=== PATIENT | male | born 1960 | race Caucasian/White ===

== ENCOUNTER 2023-03-29 12:50 | Outpatient (OUT) | payer MEDICAID, SELFPAY ==
--- NOTE | 2023-03-29 13:10 | CT_ITS ---
[address] [address] Patient Name: KAMERON GARCIA MRN: [id number] date: 1960 Sex: M Assigned Patient Location: CT Current Patient Location: CT Accession/Order Number: [id number] Exam Date: 03/29/2023 13:05 Report Date: 03/29/2023 15:51 At the request of: ARMANDO BOLES Procedure: CT abdomen pelvis wo con EXAMINATION: CT abdomen pelvis wo con HISTORY: Acute flank pain R10.9 ; left flank pain, hematuria COMPARISON: No relevant comparison available. TECHNIQUE: Axial, Coronal, and Sagittal images were obtained without and/or with IV contrast as indicated by examination type. Dose reduction techniques were achieved by using automated exposure control and/or adjustment of mA and/or kV according to patient size and/or use of iterative reconstruction technique. FINDINGS: LUNG BASES: No visible pulmonary or pleural disease. LIVER: No enlargement, atrophy, suspicious density, or significant focal lesion. BILIARY: No dilatation or calcification. PANCREAS: No lesion, fluid collection, or abnormal duct dilatation. SPLEEN: No enlargement or focal lesion. ADRENALS: No mass or enlargement. KIDNEYS: Numerous small nonobstructing stones within kidneys bilaterally. Mild left periureteral stranding secondary to a 3 mm nonobstructing stone within the distal ureter. BOWEL/MESENTERY: No visible mass, obstruction, or bowel wall thickening. AORTA/VASCULAR: No aneurysm or dissection. RETROPERITONEUM: No mass or adenopathy. LYMPH NODES: No adenopathy. URINARY BLADDER: No visible focal wall thickening, lesion, or calculus. PELVIC ORGANS: No visible mass. Pelvic organs appropriate for patient age. ABDOMINAL WALL: No mass or hernia. BONES: Marked degenerative disc disease of lumbar spine. No fracture or bone lesion. OTHER: Negative. CT/CT abdomen pelvis wo con IMPRESSION: 1.Nonobstructing 3 mm stone within distal left ureter likely contributing to patient's symptoms. 2. Bilateral nonobstructing nephrolithiasis. 3.Lumbar spine and marked degenerative disc disease. Electronically authenticated by: MATTHIEU ELIZONDO Date: 03/29/2023 15:51
== END 2023-03-29 12:51 | disposition home or self-care (01) ==
LOC: CT 12:52
PROVIDERS: PCP Internal Medicine; Visit Provider Internal Medicine
DX: R10.9 Unspecified abdominal pain (principal)
CPT/HCPCS: 74176

== ENCOUNTER 2023-07-09 13:08 | Emergency (ER) | payer MEDICAID, SELFPAY ==
[2023-07-09] VITALS (20 sets, daily range): BP systolic 132–165; BP diastolic 83–103; PULSE 60–74; RESP 15–28; TEMP 36.4; O2SAT 91–98; BMI 28.0
--- NOTE | 2023-07-09 13:30 | ED.CHESTPAI1 ---
HPI - Chest Pain General Chief Complaint: Chest Pain Stated Complaint: CHEST DISCOMFERT Time Seen by Provider: 07/09/23 13:20 Source: patient Mode of arrival: walk-in Limitations: no limitations History of Present Illness HPI narrative: very pleasant gentleman today here wanting to get checked out boasts because of discomfort in his retrosternal area. He says he does have some esophageal reflux and for last week or two he's been having a little bit discomfort sometimes when he bends over. This discomfort does not radiate to his neck and jaw or arms. There is no heaviness pressure or squeezing sensation. It comes and goes throughout the day. It is not related to exertion. He just recently completed a calcium CT store and doesn't know the results. He thinks it was either 117, or 170. This was done at another facility. He does have risk factors his type 2 diabetes, hypertension, he was also recently started on a statin, he takes aspirin baby aspirin every day. He has never seen a engraver lettering. He does not have any nausea vomiting or diaphoresis. No shortness of breath. He says sometimes bending over reproduces his pain. Related Data Allergies Allergy/AdvReac Type Severity Reaction Status Date / Time No Known Drug Allergies Allergy Verified 07/09/23 13:21 [facility] Social History Smoking status: Never smoker Exam Narrative Exam Narrative: awake and alert pleasant stat EKG done on arrival shows sinus rhythm with no evidence of ischemia injury or infarct. No ST segment elevation. His skin is warm and dry speaks memories are moist and pink he's not particularly anxious or apprehensive. Neck examination shows no jugular venous distention no thyromegaly and there is no carotid bruits on auscultation. Respiratory his lungs are clear bilaterally with no wheezes rales rub or wwheezing. Cardio examination shows no S3-S4 clicks rubs or murmurs. He does not have any abdominal pain or epigastric discomfort. Extremities show no evidence of swelling or edema. Constitutional Vital Signs, click to edit/add: Last Vital Signs Temp 97.6 F 07/09/23 13:14 Pulse 60 07/09/23 15:20 Resp 17 07/09/23 15:20 BP 136/83 07/09/23 15:00 Pulse Ox 95 07/09/23 15:20 O2 Del Method Room Air 07/09/23 13:14 Course Vital Signs Vital signs: Vital Signs Temperature 97.6 F 07/09/23 13:14 Pulse Rate 71 07/09/23 13:14 Respiratory Rate 18 07/09/23 13:14 Blood Pressure 165/95 H 07/09/23 13:14 Pulse Oximetry 98 07/09/23 13:14 Oxygen Delivery Method Room Air 07/09/23 13:14 Temperature 97.6 F 07/09/23 13:14 Pulse Rate 60 07/09/23 15:20 Respiratory Rate 17 07/09/23 15:20 Blood Pressure 136/83 07/09/23 15:00 Pulse Oximetry 95 07/09/23 15:20 Oxygen Delivery Method Room Air 07/09/23 13:14 MDM - Chest Pain MDM Narrative Medical decision making narrative: this patient presents with chest discomfort. He does have risk factors as noted below. His cardiac risk or is low to moderate. His resting EKG is sinus rhythm. To take high sensitivity troponins were done and both are very very low. His calcium score is on the low index side by his history. It certainly well less than four hundred. His exams normal. I do not believe he has cardiovascular instability or problem at this time. I will I can follow-up with Dr. Michele. He is to continue the statin and aspirin and other meds for diabetes and hypertension. Lab Data Labs: Lab Results 07/09/23 07/09/23 Range/Units 13:30 15:28 WBC 8.2 (4.0-11.0) 10^3/uL RBC 5.01 (4.70-6.10) 10^6/uL Hgb 14.6 (14.0-18.0) g/dL Hct 43.6 (42.0-54.0) % MCV 87.0 (80.0-94.0) fL MCH 29.1 (25.9-34.0) pg MCHC 33.5 (29.9-35.2) g/dL RDW 13.1 (11.0-15.0) % Plt Count 225 (150-450) 10^3/uL MPV 9.0 L (9.5-13.5) fL Neut % (Auto) 68.4 (43.0-75.0) % Lymph % (Auto) 20.2 L (20.5-60.0) % [place] % (Auto) 8.2 (1.7-12.0) % Eos % (Auto) 2.2 (0.9-7.0) % Baso % (Auto) 0.5 (0.2-2.0) % Neut # (Auto) 5.6 (1.4-6.5) 10^3/uL Lymph # (Auto) 1.7 (1.2-3.8) 10^3/uL [place] # (Auto) 0.7 (0.3-0.8) 10^3/uL Eos # (Auto) 0.2 (0.0-0.7) 10^3/uL Baso # (Auto) 0.0 (0.0-0.1) 10^3/uL Abs Immat Gran (auto) 0.04 H (0.00-0.03) 10^3/uL Imm/Tot Granulo (auto) 0.5 (0.0-0.5) % D-Dimer 0.33 (<=0.59) mg/L FEU Sodium 138 (136-145) mmol/L Potassium 4.0 (3.5-5.1) mmol/L Chloride 105 (98-107) mmol/L Carbon Dioxide 27.3 (21.0-32.0) mmol/L Anion Gap 9.7 BUN 17.0 (7.0-18.0) mg/dL Creatinine 0.83 (0.70-1.30) mg/dL Est GFR ( Amer) >60 (>=60) Est GFR (Non-Af Amer) >60 (>=60) BUN/Creatinine Ratio 20.5 Glucose 125 H (74-106) mg/dL Calcium 9.2 (8.5-10.1) mg/dL Troponin I High Sens <4.0 L <4.0 L (4.0-76.1) pg/mL NT-Pro-B Natriuret Pep 10.0 (<=900.0) pg/mL Heart Score History: Slightly/Non-Suspicious ECG: Normal Age: >45-<65 years Risk Factors: >3 Risk Factors/ HX of CAD:2 Troponin: <Normal Limit Total Heart Score Recommendations & Risks:: 3 Discharge Plan Discharge Chief Complaint: Chest Pain Clinical Impression: Chest pain Patient Disposition: Home, Self-Care Time of Disposition Decision: 16:05 Additional Instructions: follow-up with primary care doctor to discuss your calciums score and cardiovascular risk factors. Stand Alone Forms: Portal Instructions Referrals: Olivier Langley DO [Primary Care Provider] - 1 week
--- NOTE | 2023-07-09 13:32 | ECG_ITS ---
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
--- NOTE | 2023-07-09 13:32 | XR_ITS ---
The [address] [address] Patient Name: KAMERON GARCIA MRN: [id number] date: 1960 Sex: M Assigned Patient Location: ER Current Patient Location: ER Accession/Order Number: [id number] Exam Date: 07/09/2023 13:40 Report Date: 07/09/2023 14:22 At the request of: PHILLY GAINES Procedure: XR chest 1V PROCEDURE: XR chest 1V DATE: 07/09/2023 12:40 PM ORDER ENTRY CLERK COMPARISONS: None. CLINICAL INDICATION: 62 years Male discomfort FINDINGS: The cardiomediastinal silhouette and pulmonary vasculature are within normal limits. The lungs are clear. There is no evidence of pleural effusion or pneumothorax. XR/XR chest 1V IMPRESSION: Chest radiograph is within normal limits. Electronically authenticated by: YAIMA DONATO Date: 07/09/2023 14:22
[2023-07-09 13:37] LABS: Basophils Percent Auto 0.5 % (0.2-2.0); Eosinophils Absolute Auto 0.2 10^3/uL (0.0-0.7); Eosinophils Percent Auto 2.2 % (0.9-7.0); Hematocrit 43.6 % (42.0-54.0); Hemoglobin 14.6 g/dL (14.0-18.0); Immature Granulocytes Abs Auto 0.04 10^3/uL (0.00-0.03); Immature Granulocytes Pct Auto 0.5 % (0.0-0.5); Lymphocytes Absolute Auto 1.7 10^3/uL (1.2-3.8); Lymphocytes Percent Auto 20.2 % (20.5-60.0); Mean Corpuscular HGB Conc 33.5 g/dL (29.9-35.2); Mean Corpuscular Hemoglobin 29.1 pg (25.9-34.0); Monocytes Absolute Auto 0.7 10^3/uL (0.3-0.8); Monocytes Percent Auto 8.2 % (1.7-12.0); Neutrophils Absolute Auto 5.6 10^3/uL (1.4-6.5); Neutrophils Percent Auto 68.4 % (43.0-75.0); Platelet Count 225 10^3/uL (150-450); Red Blood Count 5.01 10^6/uL (4.70-6.10); Red Cell Distribution Width 13.1 % (11.0-15.0); White Blood Count 8.2 10^3/uL (4.0-11.0)
[2023-07-09 13:52] LABS: D Dimer 0.33 mg/L FEU (<=0.59)
[2023-07-09 13:59] LABS: Anion Gap 9.7; BUN Creatinine Ratio 20.5; Calcium 9.2 mg/dL (8.5-10.1); Carbon Dioxide 27.3 mmol/L (21.0-32.0); Chloride 105 mmol/L (98-107); Estimated GFR (African America >60 (>=60); Estimated GFR (Non-African Ame >60 (>=60); Glucose 125 mg/dL (74-106); Sodium 138 mmol/L (136-145); Troponin I High Sensitivity <4.0 pg/mL (4.0-76.1)
[2023-07-09 15:49] LABS: Troponin I High Sensitivity <4.0 pg/mL (4.0-76.1)
== END 2023-07-09 16:18 | disposition home or self-care (01) ==
PROVIDERS: Emergency Provider Emergency Medicine Emergency Medical Services; PCP Internal Medicine
DX: R07.9 Chest pain, unspecified (principal); E11.9 Type 2 diabetes mellitus without complications; I10 Essential (primary) hypertension
CPT/HCPCS: 36415; 71045; 80048; 83880; 84484; 85025; 85378; 93005; 99285

== ENCOUNTER 2023-07-10 10:09 | Outpatient (OUT) | payer MEDICAID, SELFPAY ==
[2023-07-10 10:23] LABS: Basophils Percent Auto 0.5 % (0.2-2.0); Eosinophils Absolute Auto 0.2 10^3/uL (0.0-0.7); Eosinophils Percent Auto 2.8 % (0.9-7.0); Hematocrit 45.7 % (42.0-54.0); Hemoglobin 15.1 g/dL (14.0-18.0); Immature Granulocytes Abs Auto 0.01 10^3/uL (0.00-0.03); Immature Granulocytes Pct Auto 0.1 % (0.0-0.5); Lymphocytes Absolute Auto 1.5 10^3/uL (1.2-3.8); Lymphocytes Percent Auto 20.1 % (20.5-60.0); Mean Corpuscular Hemoglobin 29.2 pg (25.9-34.0); Mean Corpuscular Volume 88.4 fL (80.0-94.0); Mean Platelet Volume 8.9 fL (9.5-13.5); Monocytes Absolute Auto 0.6 10^3/uL (0.3-0.8); Monocytes Percent Auto 7.5 % (1.7-12.0); Neutrophils Absolute Auto 5.1 10^3/uL (1.4-6.5); Platelet Count 223 10^3/uL (150-450); Red Blood Count 5.17 10^6/uL (4.70-6.10); Red Cell Distribution Width 13.1 % (11.0-15.0); White Blood Count 7.4 10^3/uL (4.0-11.0)
[2023-07-10 10:40] LABS: Estimated Average Glucose 143 mg/dL; Glycohemoglobin A1C 6.6 % (4.5-6.2)
[2023-07-10 10:57] LABS: Alanine Aminotransferase 29 U/L (16-63); Albumin Globulin Ratio 0.9; Albumin Level 3.8 g/dL (3.4-5.0); Alkaline Phosphatase 68 U/L (46-116); Anion Gap 12.1; Aspartate Amino Transferase 14 U/L (15-37); Bilirubin Total 0.6 mg/dL (0.2-1.0); Carbon Dioxide 29.2 mmol/L (21.0-32.0); Chloride 104 mmol/L (98-107); Chol HDL Ratio 3.8; Cholesterol 172 mg/dL (<=200); Estimated GFR (African America >60 (>=60); Estimated GFR (Non-African Ame >60 (>=60); Globulin 4.1 g/dL; Glucose 132 mg/dL (74-106); HDL Cholesterol 45 mg/dL (40-60); LDL Cholesterol Calculated 108.4 mg/dL; Potassium 4.3 mmol/L (3.5-5.1); Sodium 141 mmol/L (136-145); Total Protein 7.9 g/dL (6.4-8.2); Triglycerides 93 mg/dL (<=150); VLDL CHOLESTEROL 18.6 mg/dL
== END 2023-07-10 10:10 | disposition home or self-care (01) ==
LOC: LAB 10:09
PROVIDERS: PCP Internal Medicine; Visit Provider Internal Medicine
DX: Z00.00 Encounter for general adult medical examination without abnormal findings (principal)
CPT/HCPCS: 36415; 80053; 80061; 82043; 83036; 85025; G0103

== ENCOUNTER 2023-08-14 09:00 | Outpatient (OUT) | payer MEDICAID, SELFPAY ==
--- NOTE | 2023-08-14 | CT_ITS ---
The [address] [address] Patient Name: KAMERON GARCIA MRN: [id number] date: 1960 Sex: M Assigned Patient Location: LAB Current Patient Location: Accession/Order Number: [id number] Exam Date: 08/14/2023 09:48 Report Date: 08/16/2023 21:20 At the request of: ARMNADO BOLES Procedure: CT chest w con EXAMINATION: CT chest w con HISTORY: cough w/ hemophysis R04.2 COMPARISON: No relevant comparison available. TECHNIQUE: Multi-planar CT images were obtained without and/or with IV contrast as indicated by examination type. Axial, Coronal, and Sagittal images. Dose reduction techniques were achieved by using automated exposure control and/or adjustment of mA and/or kV according to patient size and/or use of iterative reconstruction technique. FINDINGS: LUNGS: Mild groundglass opacities within lung bases favoring atelectasis. PLEURA: No mass, effusion, or pneumothorax. VASCULATURE: No abnormality. BAILEE: No mass or adenopathy. MEDIASTINUM: No mass or adenopathy. CARDIAC: No enlargement, pericardial thickening, or significant calcification. AORTA: No aneurysm or dissection. CHEST WALL: No mass or axillary adenopathy. BONES: No bone lesion or fracture. LIMITED ABDOMEN: Fatty infiltration of liver. Limited images of the upper abdomen. OTHER: Negative. CT/CT chest w con IMPRESSION: 1. No acute or suspicious findings to account for patient's symptoms. 2. Mild bilateral atelectasis; mild diffuse infiltrates are felt less likely. Electronically authenticated by: MATTHIEU ELIZONDO Date: 08/16/2023 21:20
--- OUTSIDE RECORDS SUMMARY | 2023-08-14 09:03 | XMS_ITS | CCD ---
Author Name Unknown Address [address] [place] [id number] Organization [facility] Care Team Providers Care Neuroradiologist Name Role Phone SHIVAM, DR ROBERTS Consulting Unavailable BALL, DR ROBERTS Attending Unavailable BALL, DR ROBERTS Admitting Unavailable BALL, DR ROBERTS Attending Unavailable BALL, DR ROBERTS Admitting Unavailable BALL, DR ROBERTS Consulting Unavailable BALL, DR ROBERTS Attending Unavailable BALL, DR ROBERTS Admitting Unavailable BALL, DR ROBERTS Consulting Unavailable REQUEST, DR DEAN LISTED Admitting Unavaila ble REQUEST, DR DEAN LISTED Consulting Unavaila ble REQUEST, DR DEAN LISTED Attending Unavaila ble CUBA, DR AMARJIT Bhat Admitting Unavailable CUBA, DR AMARJIT Bhat Consulting Unavailable CUBA, DR AMARJIT Bhat Attending Unavailable BALL, DR ROBERTS Attending Unavailable BALL, DR ROBERTS Admitting Unavailable BALL, DR ROBERTS Consulting Unavailable ZIEBER, DR MATTHIEU Hernandez Consulting Unavailable Ball, Olivier Unavailable PAL THORNTON Attending Unavailable Allergies Allergy Classification Reported Allergen(s) Allergy Type Date of Onset Reaction(s) Facility (2 sources) patient allergy list reviewed by nurse or physicia Propensity to adverse reactions 5 Comment:Done [employer] Other Medications Current Medications Medication Drug Class(es) Dates Sig (Normalized) Sig (Original) aspirin 81 mg delayed release oral tablet (10 sources) Platelet Aggregation Inhibitor, Nonsteroidal Anti-inflammatory Drug take 1 tablet by mouth every twenty-four hours Aspirin 81 81 MG 1 tablet Orally Once a day Active take 1 tablet by mouth once last y Aspirin 81 81 MG 1 tablet Orally Once a day Active atorvastatin 10 mg oral tablet (4 sources) HMG-CoA Reductase Inhibitor Start: 07-05-2023 take 1 tablet by mouth every twenty-four hours Atorvastatin Calcium 10 MG 1 tablet Orally Once a day Jun, Active cetirizine hydrochloride 10 mg oral tablet (10 sources) Histamine-1 Receptor Antagonist take 1 tablet by mouth every twenty-four hours ZyrTEC Allergy 10 MG 1 tablet Orally Once a day Active famotidine 40 mg oral tablet (2 sources) Histamine-2 Receptor Antagonist Start: 07-19-2023 take 1 tablet by mouth every twenty-four hours Famotidine 40 MG 1 tablet at bedtime Orally Once a day for 30 days Jul, Active losartan potassium 25 mg oral tablet (10 sources) Angiotensin 2 Receptor Govind take 1 tablet by mouth every twenty-four hours Losartan Potassium 25 MG 1 tablet Orally Once a day Active metFORMIN hydrochloride 1000 mg oral tablet (10 sources) Biguanide metFORMIN HCl 1000 MG TAKE 1 (ONE) TABLET BEFORE BREAKFAST AND EVENING MEAL Active omeprazole 40 mg delayed release oral capsule (10 sources) Proton Pump Inhibitor take 1 capsule by mouth once daily Omeprazole 40 MG TAKE 1 CAPSULE BY MOUTH EVERY DAY ON AN EMPTY STOMACH, FOLLOWED IN 30 MINUTES BY BKFST Active tamsulosin hydrochloride 0.4 mg oral capsule (10 sources) alpha-Adrenergic Govind Start: 03-02-2023 take 1 capsule by mouth once daily in the evening Tamsulosin HCl 0.4 MG 1 capsule Orally Once a day, in evening for 15 days Feb, Active True Metrix Blood Glucose Test - (5 sources) True Metrix Bloo d Glucose Test - USE DIRECTED TO TEST BLOOD SUGAR ONCE DAILY DIRECTED for 30 Active True Metrix Meter w/Device (5 sources) True Metrix Mete r w/Device USE DIRECTED ONCE DAILY for 30 Active Completed/Discontinued Medications Medication Drug Class(es) Dates Sig (Normalized) Sig (Original) ascorbic acid 4700 mg / polyethylene glycol 3350 [id number] mg / potassium chloride 1015 mg / sodium ascorbate 5900 mg / sodium chloride 2690 mg / sodium sulfate 7500 mg powder for oral solution (10 sources) Osmotic Laxative, Vitamin C Start: 10-27-2013 MoviPrep 100 GM as directed Orally 1 for 1 Oct, Not-Taking/PRN Problems Active Problems Problem Classification Problem Date Documented Da te Episodic/Chronic Abdominal pain (14 sources) Flank pain; Translations: [Unspecified abdominal pain] Onset: 5 Episodic Diabetes mellitus with complications (20 sources) Type 2 diabetes mellitus with hyperglycemia; Translations: [Hyperglycemia due to type 2 diabetes mellitus] Onset: 2 Chronic Diabetes mellitus without complication (2 sources) Type 2 diabetes mellitus without complication; Translations: [Type 2 diabetes mellitus without complications] Onset: 4 Chronic Disorders of lipid metabolism (7 sources) Pure hyperglyceridemia; Translations: [Pure hyperglyceridemia] Onset: 9 Chronic Esophageal disorders (17 sources) Gastroesophageal reflux disease; Translations: [GERD [Gastroesophageal reflux disease]] Onset: 4 Chronic Essential hypertension (17 sources) Essential hypertension; Translations: [Essential (primary) hypertension] Chronic Genitourinary symptoms and ill-defined conditions (1 source) Nocturia Episodic Hyperplasia of prostate (8 sources) Benign prostatic hypertrophy with outflow obstruction; Translations: [Hypertrophy (benign) of prostate with urinary obstruction and other lower urinary tract symptoms [LUTS]] Onset: 6 Chronic Other and unspecified benign neoplasm (5 sources) Benign neoplasm of colon; Translations: [Benign neoplasm of colon] Episodic Other and unspecified benign neoplasm (12 sources) Benign neoplasm, unspecified site; Translations: [Adenomatous polyp] Onset: 2 Episodic Other ear and sense organ disorders (2 sources) Infective otitis externa; Translations: [Unspecified infective otitis externa] Onset: 4 Chronic Other gastrointestinal disorders (10 sources) Irritable bowel syndrome with diarrhea; Translations: [Irritable bowel syndrome with diarrhea] Chronic Other gastrointestinal disorders (5 sources) Diarrhea; Translations: [Diarrhea, unspecified] Episodic Other lower respiratory disease (2 sources) Hemoptysis Episodic Other nutritional; endocrine; and metabolic disorders (7 sources) Body mass index 30+ - obesity; Translations: [Body mass index 30.0-30.9, adult] Onset: 4 Chronic Other nutritional; endocrine; and metabolic disorders (2 sources) Obesity; Translations: [Obesity, unspecified] Chronic Other nutritional; endocrine; and metabolic disorders (2 sources) Morbid obesity; Translations: [Morbid (severe) obesity due to excess calories] Chronic Other nutritional; endocrine; and metabolic disorders (5 sources) Obesity caused by energy imbalance; Translations: [Other obesity due to excess calories] Chronic Other nutritional; endocrine; and metabolic disorders (2 sources) Overweight; Translations: [Overweight] Episodic Other nutritional; endocrine; and metabolic disorders (1 source) Overweight Episodic Other screening for suspected conditions (not mental disorders or infectious disease) (1 source) Encounter for screening for malignant neoplasm of prostate Episodic Spondylosis; intervertebral disc disorders; other back problems (1 source) Other intervertebral disc degeneration, lumbar region; Translations: [OTH IV DISC DEGEN LUMBAR REGION] Onset: 2 Chronic Spondylosis; intervertebral disc disorders; other back problems (2 sources) Low back pain; Translations: [Low back pain, unspecified] Episodic Unclassified (3 sources) CONTACT W/AND (SUSP) EXPOS COVID-19; Translations: [CONTACT W/AND (SUSP) EXPOS COVID-19] Onset: 2 Unclassified (3 sources) LOW BACK PAIN, UNSPECIFIED; Translations: [LOW BACK PAIN, UNSPECIFIED] Onset: 2 Past or Other Problems Problem Classification Problem Date Documented Da te Episodic/Chronic Bacterial infection; unspecified site (2 sources) Bacterial infectious disease; Translations: [Bacterial infection, unspecified, in conditions classified elsewhere and of unspecified site] Onset: 12-11-2016 Episodic Esophageal disorders (8 sources) Esophageal disorders; Translations: [Gastroesophageal reflux disease with esophagitis without hemorrhage] Mycoses (2 sources) Candidal balanitis; Translations: [Candidal balanitis] Onset: 01-06-2019 Episodic Other and unspecified benign neoplasm (2 sources) Benign neoplasm of stomach; Translations: [Polyp of stomach and duodenum] Onset: 09-28-2013 Episodic Other nervous system disorders (2 sources) Abnormal gait; Translations: [Unsteadiness on feet] Resolved: 07-02-2020 Episodic Other nutritional; endocrine; and metabolic disorders (2 sources) Simple obesity ; Translations: [Other obesity due to excess calories] Resolved: 07-02-2020 Chronic Other nutritional; endocrine; and metabolic disorders (2 sources) Body mass index 25-29 - overweight; Translations: [Body mass index 29.0-29.9, adult] Onset: 09-28-2013 Episodic Other skin disorders (2 sources) Generalized hyperhidrosis; Translations: [Generalized hyperhidrosis] Onset: 04-11-2015 Episodic Other upper respiratory infections (2 sources) Acute maxillary sinusitis; Translations: [Acute maxillary sinusitis, unspecified] Onset: 12-11-2016 Episodic Skin and subcutaneous tissue infections (2 sources) Cellulitis and abscess of upper arm; Translations: [Cellulitis and abscess of upper arm and forearm] Onset: 12-27-2018 Episodic Unclassified (1 source) CONTACT W/AND (SUSP) EXPOS COVID-19; Translations: [CONTACT W/AND (SUSP) EXPOS COVID-19] Onset: 04-27-2022 Unclassified (1 source) LOW BACK PAIN, UNSPECIFIED; Translations: [LOW BACK PAIN, UNSPECIFIED] Onset: 12-24-2021 Results Test Name Value Interpretation Reference Range Facility GLYCOHEMOGLOBIN A1Con 2021 ADA RECOMMENDATION SEE BELOW Normal [facility] Comment on above: Result Comment: ADA RECOMMENDED LIMIT 4.0 - 6.0 ADA THERAPEUTIC TARGET < 7.0 ACTION SUGGESTED > 7.0 Performed By: #### A 1C #### [facility] [address] [place] [address] Dr. Van Jernigan Glucose [Mass/Vol] 143 mg/dL Normal [facility] Comment on above: Performed By: #### A 1C #### [facility] [address] [address] [address] Van Jernigan HbA1c (Bld) [Mass fraction] 6.6 % Critically high 4.5-6.2 [facility] Comment on above: Performed By: #### A 1C #### [facility] [address] [address] [address] Van Jernigan Covid-19 PCR ([facility])on 04-16 SARS-CoV-2 (COVID-19) RNA MATI+probe Ql (Unsp spec) Not detected Normal NOT DETECTED [facility] Comment on above: Result Comment: This test is not yet approved or cleared by the [place] FDA. When there are no FDA-approved or cleared tests available, and other criteria are met, FDA can make tests available under an emergency access mechanism called an Emergency Use Authorization (EUA). The EUA for this test is supported by the [employer] of Health and Human Service's (HHS's) declaration that circumstances exist to justify the emergency use of in vitro diagnostics for the detection and/or diagnosis of the virus that causes COVID-19. This EUA will remain in effect (meaning this test can be used) for the duration of the COVID-19 declaration justifying emergency of IVDs, unless it is terminated or revoked by FDA (after which the test may no longer be used). When diagnostic testing is negative, the possibility of a false negative should be considered in the context of a patient's recent exposures and the presence of clinical signs and symptoms consistent with SARS-CoV-2. Performed By: #### C VDTB #### [facility] [address] [place], [place] [address] Dr. Van Jernigan Covid-19 PCR ([facility])on SARS-CoV-2 (COVID-19) RNA MATI+probe Ql (Unsp spec) Not detected Normal NOT DETECTED [facility] Comment on above: Result Comment: This test is not yet approved or cleared by the [place] FDA. When there are no FDA-approved or cleared tests available, and other criteria are met, FDA can make tests available under an emergency access mechanism called an Emergency Use Authorization (EUA). The EUA for this test is supported by the [place] of Health and Human Service's (HHS's) declaration that circumstances exist to justify the emergency use of in vitro diagnostics for the detection and/or diagnosis of the virus that causes COVID-19. This EUA will remain in effect (meaning this test can be used) for the duration of the COVID-19 declaration justifying emergency of IVDs, unless it is terminated or revoked by FDA (after which the test may no longer be used). When diagnostic testing is negative, the possibility of a false negative should be considered in the context of a patient's recent exposures and the presence of clinical signs and symptoms consistent with SARS-CoV-2. Performed By: #### C VDTB #### [facility] [address] [place], [place] [id number] Dr. Van Jernigan Glucose Poct Glucometerson 0 01-13-2022 Glucose [Mass/Vol] 136 mg/dL Normal [facility] Comment on above: Result Comment: [facility] Glucose Reference Range is dependent on time and content of last meal. Glucose of more than 200 mg/dL in a nonstressed, ambulatory subject supports the diagnosis of Diabetes Mellitus. PERFORMED BY: [address] [place] [address] PATHOLOGIST MACHINE BRUSHER ARNOLD DOMINGO M.D. Performed By: #### G ASTRID #### Point of Care testing , Mateo 01-13-2022 L Specimen: [id number] Received: 01/13/22 Status: IRAJ Dorado Num: [id number] Spec Type: Surgical Subm Dr: Jose Ramon Easton Jr, Tissues: A Colon - Polyp (CECUM) Procedures: HE Stain/2, Gross/Micro L4 Patient Age/Sex Location Account Attending Physician Miguel Mckinney/Kristen [id number] Jose Ramon Easton Jr, SPEC NUM: [id number] RECD: 01/13/22 STATUS: IRAJ DORADO NUM: [id number] JONO: 01/13/22- DR: Jose Ramon Easton Jr, ENTERED: 01/13/[address]: SPEC TYPE: Surgical DEPT: [facility] BY: [id number] ORDERED: HE Stain/2, Gross/Micro L4 ORDERED: HE Stain/2, Gross/Micro L4 Pathological Diagnosis Cecum, biopsy: - Tubular adenoma Clinical Information Screening Gross Description Received in 10% neutral buffered formalin, labeled with the patient's name, number and polyp cecum are 2 harding tissue fragments, 0.3 cm and 0.4 cm. Entirely submitted in one cassette labeled A1. (STACIE/SARAHI) Microscopic Description Two glass slides with H E stained material have been examined. The microscopic findings support the above pathologic diagnosis. [id number] Specimen: [id number] Received: 01/13/22 Status: IRAJ Dorado Num: [id number] Spec Type: Surgical Subm Dr: Jose Ramon Easton Jr, DO Tissues: A Colon - Polyp (CECUM) Procedures: HE Stain/2, Gross/Micro L4 Patient: Miguel Mckinney [id number] (Continued) Signed (signature on file) Arnold Domingo MD 01/14/22 1546 [facility] COVID-19 Antigenon 2 COVID-19 Antigen Healthcare Worker?: N Reference Range: Negative Negative results, from patients with symptom onset beyond five days, should be treated as presumptive and confirmation with a molecular assay, if necessary, for patient management, may be performed. Negative results do not rule out COVID-19 and should not be used as the sole basis for treatment or patient management decisions, including infection control decisions. Negative results should be considered in the context of a patient's recent exposures, history and the presence of clinical signs and symptoms consistent with COVID-19. The [place] SARS Antigen VANESSA does not differentiate between SARS-CoV and SARS-CoV-2. This test was developed and its performance characteristic determined by [employer] and validated at [facility]. This test has not been FDA cleared or approved. This test has been authorized by FDA under an Emergency Use Authorization (EUA). This test has been validated in accordance with the FDA's Guidance Document (Policy for Diagnostics Testing in Laboratories Certified to Perform High Complexity Testing under CLIA prior to Emergency Use Authorization for Coronavirus Disease-2019 during the Public Health Emergency) issued on November 16, 2019. This test is only authorized for the duration of time the declaration that circumstances exist justifying the authorization of the emergency use of in vitro diagnostic tests for detection of SARS-CoV-2 virus and/or diagnosis of COVID-19 infection under section 564(b)(1) of the Act, 21 U.S.C. 360bbb-3(b)(1), unless the authorization is terminated or revoked sooner. SARS-CoV+SARS-CoV-2 (COVID-19) Ag [Presence] in Respiratory specimen by Rapid immunoassay Negative for SARS Antigen by VANESSA PERFORMED BY: [place] [address] PATHOLOGIST MACHINE BRUSHER ARNOLD DOMINGO M.D. Normal [facility] Comment on above: Performed By: #### C OVID-19 LENKA, SOFIANEG #### [address] [place] Ag Negativeon 01-10-20 Lenka Ag Negative Negative Normal Negative [facility] Comment on above: Result Comment: This is a duplicate [place] SARS Antigen (VANESSA) result to be used for statistical tracking purpose only. PERFORMED BY: [place] [address] PATHOLOGIST MACHINE BRUSHER ARNOLD DOMINGO M.D. Performed By: #### C OVID-19 LENKA, SOFIANEG #### [address] XR LSPINE 2_3 VIEWSon 2021 XR LSPINE 2_3 VIEWS EXAMINATION: XR LSPINE 2_3 VIEWS HISTORY: Low back pain , chronic COMPARISON: No relevant comparison available. FINDINGS: BONES: Moderate degenerative facet arthropathy L4-5, L5-S1. No fracture spondylolisthesis. DISC SPACES: Moderate narrowing L2-3 with degenerative endplate changes. Moderate narrowing L3-4, L4-5. PARASPINOUS: Negative. No paraspinous abnormality is seen. OTHER: Negative. IMPRESSION: 1. Multilevel moderate degenerative disc disease and degenerative facet arthropathy. Consider MRI for further evaluation. Electronically authenticated by: MATTHIEU ELIZONDO Date: 2021-12-24 11:59 Normal [facility] CBC AUTO DIFFon 10-16-2021 BASO # 0.1 103/ul Normal 0.0-0.1 [facility] Comment on above: Performed By: #### C BC #### [facility] [address] [address] [address] Van Jernigan Basophils/100 WBC (Bld) 0.7 % Normal 0.2-2.0 [facility] Comment on above: Performed By: #### C BC #### [facility] [address] [place] [address] Dr. Van Jernigan EO # 0.2 103/ul Normal 0.0-0.7 [facility] Comment on above: Performed By: #### C BC #### [facility] [address] [place] [address] Dr. Van Jernigan Eosinophils/100 WBC (Bld) 2.5 % Normal 0.9-7.0 [facility] Comment on above: Performed By: #### C BC #### [facility] [address] [place] [address] Dr. Van Jernigan Erythrocyte distribution width (RBC) [Ratio] 12.6 % Normal 11.0-15.0 [facility] Comment on above: Performed By: #### C BC #### [facility] [address] [place] [address] Dr. Van Jernigan Hematocrit (Bld) [Volume fraction] 45.7 % Normal 42.0-54.0 [facility] Comment on above: Performed By: #### C BC #### [facility] [address] [place] [address] Dr. Van Jernigan Hemoglobin (Bld) [Mass/Vol] 15.4 g/dL Normal 14.0-18.0 [facility] Comment on above: Performed By: #### C BC #### [facility] [address] [place] [address] Dr. Van Jernigan IG # 0.03 10e3/ul Normal 0.00-0.03 [facility] Comment on above: Performed By: #### C BC #### [facility] [address] [place] [address] Dr. Van Jernigan IG % 0.4 % Normal 0.0-0.5 [facility] Comment on above: Performed By: #### C BC #### [facility] [address] [place] [address] Dr. Van Jernigan LYMPH # 1.5 103/ul Normal 1.2-3.8 [facility] Comment on above: Performed By: #### C BC #### [facility] [address] [place] [address] Dr. Van Jernigan Lymphocytes/100 WBC (Bld) 22.7 % Normal 20.5-60.0 [facility] Comment on above: Performed By: #### C BC #### [facility] [address] [place] [address] Dr. Van Jernigan MANUAL DIFF REQ NO Normal [facility] Comment on above: Performed By: #### C BC #### [facility] [address] [place] [address] Dr. Van Jernigan MCH (RBC) [Entitic mass] 29.3 pg Normal 25.9-34.0 [facility] Comment on above: Performed By: #### C BC #### [facility] [address] [place] [address] Dr. Van Jernigan MCHC (RBC) [Mass/Vol] 33.7 g/dL Normal 29.9-35.2 [facility] Comment on above: Performed By: #### C BC #### [facility] [address] [place] [address] Dr. Van Jernigan MCV (RBC) [Entitic vol] 86.9 fL Normal 80.0-94.0 [facility] Comment on above: Performed By: #### C BC #### [facility] [address] [place] [address] Dr. Van Jernigan MONO # 0.7 103/ul Normal 0.3-0.8 [facility] Comment on above: Performed By: #### C BC #### [facility] [address] [place] [address] Dr. Van Jernigan Monocytes/100 WBC (Bld) 9.6 % Normal 1.7-12.0 [facility] Comment on above: Performed By: #### C BC #### [facility] [address] [place] [address] Dr. Van Jernigan NEUT # 4.3 103/ul Normal 1.4-6.5 [facility] Comment on above: Performed By: #### C BC #### [facility] [address] [address] [address] Van Jernigan Neutrophils/100 WBC (Bld) 64.1 % Normal 43.0-75.0 [facility] Comment on above: Performed By: #### C BC #### [facility] [address] [address] [address] Van Jernigan Platelet mean volume (Bld) [Entitic vol] 9.1 fL Critically low 9.5-13.5 [facility] Comment on above: Performed By: #### C BC #### [facility] [address] [place] [address] Dr. Van Jernigan PLT 214 103/ul Normal 150-450 [facility] Comment on above: Performed By: #### C BC #### [facility] [address] [place] [address] Dr. Van Jernigan RBC 5.26 106/ul Normal 4.70-6.10 [facility] Comment on above: Performed By: #### C BC #### [facility] [address] [place] [address] Dr. Van Jernigan WBC 6.8 103/ul Normal 4.0-11.0 [facility] Comment on above: Performed By: #### C BC #### [facility] [address] [place] [address] Dr. Van Jernigan LIPID PROFILEon 10-16-2021 CHOL-HDL RATIO NORM SEE BELOW Normal [facility] Comment on above: Result Comment: 3.3 - 4.4 LOW RISK 4.4 - 7.1 AVERAGE RISK 7.1 - 11.0 MODERATE RISK >11.0 HIGH RISK Performed By: #### C MP, LIPID #### [facility] [address] [place] [address] Dr. Van Jernigan Cholesterol [Mass/Vol] 165 mg/dL Normal <=200 [facility] Comment on above: Performed By: #### C MP, LIPID #### [facility] [address] [place] [address] Dr. Van Jernigan Cholesterol in HDL [Mass/Vol] 46 mg/dL Normal [facility] Comment on above: Performed By: #### C MP, LIPID #### [facility] [address] [place] [address] Dr. Van Jernigan Cholesterol in LDL [Mass/Vol] 86.0 mg/dL Normal [facility] Comment on above: Performed By: #### C MP, LIPID #### [facility] [address] [place] [address] Dr. Van Jernigan Cholesterol.total/Cho lesterol in HDL [Mass ratio] 3.6 {ratio} Normal [facility] Comment on above: Performed By: #### C MP, LIPID #### [facility] [address] [place] [address] Dr. Van Jernigan HDL NORMAL > or = 60 mg/dl - LOW CARDIOVASCULAR RISK <40 mg/dl - HIGH CARDIOVASCULAR RISK Normal [facility] Comment on above: Performed By: #### C MP, LIPID #### [facility] [address] [place] [address] Dr. Van Jernigan LDL CALC NORMAL SEE BELOW Normal [facility] Comment on above: Result Comment: <100 mg/dl OPTIMAL 100 - 129 mg/dl NEAR OR ABOVE OPTIMAL 130 - 159 mg/dl BORDERLINE HIGH 160 - 189 mg/dl HIGH >190 mg/dl VERY HIGH Performed By: #### C MP, LIPID #### [facility] [address] [place] [address] Dr. Van Jernigan Triglyceride [Mass/Vol] 165 mg/dL Critically high <=150 [facility] Comment on above: Performed By: #### C MP, LIPID #### [facility] [address] [place] [address] Dr. Van Jernigan VLDL CALC 33.0 mg/dL Normal [facility] Comment on above: Performed By: #### C MP, LIPID #### [facility] [address] [place] [address] Dr. Van Jernigan PROF 14(COMP METB)on 022 Albumin [Mass/Vol] 4.0 g/dL Normal 3.5-5.0 [facility] Comment on above: Performed By: #### C MP, LIPID #### [facility] [address] [address] [address] Van Jernigan Albumin/Globulin [Mass ratio] 1.1 {ratio} Normal [facility] Comment on above: Performed By: #### C MP, LIPID #### [facility] [address] [address] [address] Van Jernigan ALP [Catalytic activity/Vol] 82 U/L Normal 38-126 [facility] Comment on above: Performed By: #### C MP, LIPID #### [facility] [address] [address] [address] Van Jernigan ALT [Catalytic activity/Vol] 29 U/L Normal 21-72 [facility] Comment on above: Performed By: #### C MP, LIPID #### [facility] [address] [place] [address] Dr. Van Jernigan Anion gap [Moles/Vol] 9.0 mmol/L Normal [facility] Comment on above: Performed By: #### C MP, LIPID #### [facility] [address] [place] [address] Dr. Van Jernigan AST [Catalytic activity/Vol] 14 U/L Critically low 17-59 [facility] Comment on above: Performed By: #### C MP, LIPID #### [facility] [address] [place] [address] Dr. Van Jernigan Bilirubin [Mass/Vol] 0.7 mg/dL Normal 0.2-1.3 [facility] Comment on above: Performed By: #### C MP, LIPID #### [facility] [address] [address] [address] Van Jernigan Calcium [Mass/Vol] 8.8 mg/dL Normal 8.4-10.[address] [facility] Comment on above: Performed By: #### C MP, LIPID #### [facility] [address] [address] [address] Van Jernigan Chloride [Moles/Vol] 104 mmol/L Normal 98-107 [facility] Comment on above: Performed By: #### C MP, LIPID #### [facility] [address] [address] [address] Van Jernigan CO2 [Moles/Vol] 29.4 mmol/L Normal 22.0-30.0 [facility] Comment on above: Performed By: #### C MP, LIPID #### [facility] [address] [address] [address] Van Jernigan Creatinine [Mass/Vol] 0.87 mg/dL Normal 0.66-1.25 [facility] Comment on above: Performed By: #### C MP, LIPID #### [facility] [address] [address] [address] Van Jernigan EGFR-AF CAMEROONIAN >60 Normal >=60 [facility] Comment on above: Performed By: #### C MP, LIPID #### [facility] [address] [place] [address] Dr. Van Jernigan EGFR-NON AF CAMEROONIAN >60 Normal >=60 [facility] Comment on above: Performed By: #### C MP, LIPID #### [facility] [address] [place] [address] Dr. Van Jernigan Globulin (S) [Mass/Vol] 6.3 g/dL Normal [facility] Comment on above: Performed By: #### C MP, LIPID #### [facility] [address] [address] [address] Van Jernigan Glucose [Mass/Vol] 141 mg/dL Critically high 74-106 [facility] Comment on above: Performed By: #### C MP, LIPID #### [facility] [address] [place] [address] Dr. Van Jernigan Potassium [Moles/Vol] 4.4 mmol/L Normal 3.4-5.0 [facility] Comment on above: Performed By: #### C MP, LIPID #### [facility] [address] [place] [address] Dr. Van Jernigan Protein [Mass/Vol] 7.6 g/dL Normal 6.1-8.2 [facility] Comment on above: Performed By: #### C MP, LIPID #### [facility] [address] [address] [address] Van Jernigan Sodium [Moles/Vol] 138 mmol/L Normal 137-145 [facility] Comment on above: Performed By: #### C MP, LIPID #### [facility] [address] [address] [address] Van Jernigan Urea nitrogen [Mass/Vol] 16.0 mg/dL Normal 9.0-20.0 [facility] Comment on above: Performed By: #### C MP, LIPID #### [facility] [address] [address] [address] Van Jernigan Urea nitrogen/Creatinine [Mass ratio] 18.4 mg/mg Normal [facility] Comment on above: Performed By: #### C MP, LIPID #### [facility] [address] [address] [address] Van Jernigan GLYCOHEMOGLOBIN A1Con 2021 ADA RECOMMENDATION ADA THERAPEUTIC TARGET 6.0 - 7.0 ACTION SUGGESTED > 7.0 Normal [facility] Comment on above: Performed By: #### D ATA1C #### [facility] [address] [address] [address] Van Jernigan Glucose [Mass/Vol] 151 mg/dL Normal [facility] Comment on above: Performed By: #### D ATA1C #### [facility] [address] [address] [address] Van Jernigan HbA1c (Bld) [Mass fraction] 6.9 % Critically high <=6.0 [facility] Comment on above: Performed By: #### D ATA1C #### [facility] [address] [address] [address] Van Jernigan Vital Signs Date Time Vital Sign Value Performing Clinician Facility 06-04-2023 13:30-0400 Body height 157.48 cm Olivier Langley Other [facility] Other 06-04-2023 13:30-0400 Body mass index (BMI) [Ratio] 28.35 kg/m2 Olivier Langley Other [facility] Other 06-04-2023 13:30-0400 Body weight 70.31 kg Olivier Ball Other [facility] Other 06-04-2023 13:30-0400 Diastolic blood pressure 84 mm[Hg] Olivier Ball Other [facility] Other 06-04-2023 13:30-0400 Respiratory rate 12 /min Olivier Ball Other [facility] Other 06-04-2023 13:30-0400 Systolic blood pressure 135 mm[Hg] Olivier Ball Other [facility] Other 03-02-2023 15:45-0400 Body weight 71.22 kg Olivier Ball Other [facility] Other 03-02-2023 15:45-0400 Diastolic blood pressure 81 mm[Hg] Olivier Ball Other [facility] Other 03-02-2023 15:45-0400 SaO2% (BldA) [Mass fraction] 99 % Olivier Ball Other [facility] Other 03-02-2023 15:45-0400 Systolic blood pressure 136 mm[Hg] Olivier Ball Other [facility] Other Encounters Encounter Date Encounter Type Care Provider Facility Start: 08-13-2023 End: 08-13-2023 ambulatory Olivier Langley Other [facility] Other Start: 08-13-2023 Telephone encounter Olivier Langley [facility] Start: 08-02-2023 Telephone encounter Olivier Langley [facility] Start: 08-02-2023 End: 08-02-2023 ambulatory PAL Pizarro TIMMIS Not Available Start: 07-12-2023 End: 07-12-2023 ambulatory Olivier Langley Other [facility] Other Start: 07-12-2023 Telephone encounter Olivier Langley [facility] Start: 07-02-2023 End: 07-02-2023 ambulatory Olivier Langley Other [facility] Other Start: 07-02-2023 Telephone encounter Olivier Langley [facility] Start: 06-04-2023 End: 06-04-2023 ambulatory Olivier Langley Other [facility] Other Start: 06-04-2023 Encounter for genera l adult medical examination without abnormal findings Olivier Langley [facility] Start: 06-04-2023 Periodic preventive med est patient 40-64yrs Olivier Langley [facility] Start: 04-01-2023 End: 04-01-2023 ambulatory Olivier Shivam Other [facility] Other Start: 04-01-2023 Telephone encounter Olivier Langley [facility] Start: 03-29-2023 End: 03-29-2023 ambulatory Olivier Langley Other [facility] Other Start: 03-29-2023 Telephone encounter Olivier Langley [facility] Start: 03-03-2023 End: 03-03-2023 ambulatory Olivier Langley Other [facility] Other Start: 03-03-2023 Telephone encounter Olivier Langley [facility] Start: 03-02-2023 End: 03-02-2023 ambulatory Olivier Shivam Other [facility] Other Start: 03-02-2023 Office outpatient vi sit 15 minutes Olivier Langley [facility] Start: 06-09-2022 End: 06-10-[address] OLIVIER LANGLEY Facility:[facility] Start: 04-27-2022 End: 04-28-[address] OLIVIER LANGLEY Facility:[facility] Start: 04-24-2022 End: 04-24-[address] AMARJIT CUBA Facility:[facility] Start: 01-13-2022 Adult health examination Olivier Langley Other [facility] Other Start: 12-24-2021 End: 12-25-[address] OLIVIER LANGLEY Facility:[facility] Start: 10-17-2021 Encounter for genera l adult medical examination without abnormal findings DR OLIVIER LANGLEY [facility] Start: 10-16-2021 End: 10-17-[address] OLIVIER LANGLEY Facility:[facility] Start: 10-16-2021 End: 10-17-2021 Encounter for general adult medical examination without abnormal findings DR OLIVIER LANGLEY Facility:[facility] Start: 09-29-2021 End: 09-30-[address] DEAN LISTED REQUEST Facility:[facility] Procedures Date Procedure Procedure Detail Performing Clinician Start: 09-29-[address] LARA [place] Comment on above: Performed By: #### D ATPSA #### [facility] [address] [place] [address] Dr. Van Jernigan Start: 10-24-2013 Screening for malign ant neoplasm of prostate Olivier Langley Other Screening for malign ant neoplasm of colon Olivier Langley Other Immunizations Immunization Date Immunization Notes Care Provider Ángel alberto 06-04-2023 influenza, injectabl e, quadrivalent, preservative free Olivier Langley Other [facility] Other 05-26-2021 influenza virus vaccine, split virus (incl. purified surface antigen) Olivier Langley Other [facility] Other 05-12-2020 influenza virus vaccine, split virus (incl. purified surface antigen) Olivier Langley Other [facility] Other Payers Date Payer Category Payer Medicaid [id number]. [id number] 1960 Unknown [id number] [id number] 1960 Unknown [id number] 2.16.84 [id number] 1962 Unknown [id number] 2.16.84 [id number] 1962 Unknown [id number] 2.16.84 [id number] 1962 Unknown [id number] 2.16.84 [id number] 1962 Unknown [id number] 1959 Self-pay 1957 Unknown [id number] Unknown [id number] 2.16.84 [id number] Social History Date Type Detail Facility Unknown if ever smoked [facility] Other Sex Assigned At Sex Assigned At Bir th [facility] Other Evaluation note 08-13-2023 Note Date & Type Note Facility 08-13-2023 Evaluation note Encounter Date Diagnosis Assessment Notes Jul, Cough with hemoptysis (ICD-10 - R04.2) [facility] Other Evaluation note 08-02-2023 Note Date & Type Note Facility 08-02-2023 Evaluation note Encounter Date Diagnosis Assessment Notes Jul, Cough with hemoptysis (ICD-10 - R04.2) [facility] Other Evaluation note 07-02-2023 Note Date & Type Note Facility 07-02-2023 Evaluation note Encounter Date Diagnosis Assessment Notes Jun, Hypercholesteremia (ICD-10 - E78.00) [facility] Other Evaluation note 06-04-2023 Note Date & Type Note Facility 06-04-2023 Evaluation note Encounter Date Diagnosis Assessment Notes May, Essential hypertension (ICD-10 - I10) This patient is instructed to consume a healthy, low-fat, low-salt diet. They are also encouraged to continue exercise to achieve/maintai n a normal BMI. May, Wellness examination (ICD-10 - Z00.00) Healthy diet and exercise. Reviewed age-appropriate preventive testing recommended. May, Type 2 diabetes mellitus with hyperglycemia, without long-term current use of insulin (ICD-10 - E11.65) This patient is following a comprehensive diabetic treatment plan. They are checking their feet daily for calluses and nonhealing ulcers. They are being seen for yearly dilated eye examinations. Goals: SBP less than 130, LDL less than 100, FBS less than 140, A1C less than 7%. They are checking their BS daily, will which are reviewed at the office visit. Continue regular routine monitoring of A1C,] Microalbumin, Dilated eye exam and Foot exam May, Type 2 diabetes mellitus with diabetic polyneuropathy, without long-term current use of insulin (ICD-10 - E11.42) Inspect feet daily for cuts and calluses.Recomm end diabetic shoes and inserts to prevent callus formation.Fall precautions. May, Gastroesophageal reflux disease with esophagitis without hemorrhage (ICD-10 - K21.00) Diet instructions: Smaller portions, avoid eating and laying flat, avoid eating or drinking prior to bedtime. Weight loss. May, Overweight (ICD-10 - E66.3) This patient has been instructed on a low-fat, high-fiber diet. They are instructed to reduce calories, portion sizes and snacks. It is recommended that they exercise for 30 minutes, 3-5 times weekly. May, Nocturia (ICD-10 - R35.1) May, Benign prostatic hyperplasia with lower urinary tract symptoms (ICD-10 - N40.1) Symptoms tolerable, yearly SANDHYA / PSA May, Screening PSA (prostate specific antigen) (ICD-10 - Z12.5) Yearly screening [facility] Other Evaluation note 03-02-2023 Note Date & Type Note Facility 03-02-2023 Evaluation note Encounter Date Diagnosis Assessment Notes Feb, Essential hypertension (ICD-10 - I10) This patient is instructed to consume a healthy, low-fat, low-salt diet. They are also encouraged to continue exercise to achieve/maintain a normal BMI. Feb, Type 2 diabetes mellitus with diabetic polyneuropathy, without long-term current use of insulin (ICD-10 - E11.42) This patient is following a comprehensive diabetic treatment plan. They are checking their feet daily for calluses and nonhealing ulcers. They are being seen for yearly dilated eye examinations. Goals: SBP less than 130, LDL less than 100, FBS less than 140, AC and A1C less than 7%. They are checking their BS daily, will which are reviewed at the office visit. Continue regular routine monitoring of A1C,] Microalbumin, Dilated eye exam and Foot exam Feb, Flank pain, acute (ICD-10 - R10.9) Push fluids, begin Flomax Instructed to go to ER for increased pain, fever or vomiting. [facility] Other Evaluation note Note Date & Type Note Facility Evaluation note No Information [facility] Other History general Narrative - Reported Note Date & Type Note Facility History general Narrative - Reported Type Medical History Adenomatous polyp Medical History Essential hypertension Medical History Controlled type 2 di abetes mellitus with hyperglycemia, without long-term current use of insulin Medical History Gastroesophageal ref lux disease with esophagitis without hemorrhage Medical History Type 2 diabetes sophia itus with diabetic polyneuropathy, without long-term current use of insulin Medical History Irritable bowel synd elyssa with diarrhea Surgical History Colonoscopy 01/13/2022 Surgical History EGD 10/2013 Surgical History Tonsillectomy Hospitalization History see surgical history [facility] Other History general Narrative - Reported Note Date & Type Note Facility History general Narrative - Reported Type Medical History Adenomatous polyp Medical History Essential hypertension Medical History Controlled type 2 di abetes mellitus with hyperglycemia, without long-term current use of insulin Medical History Gastroesophageal ref lux disease with esophagitis without hemorrhage Medical History Type 2 diabetes sophia itus with diabetic polyneuropathy, without long-term current use of insulin Medical History Irritable bowel synd elyssa with diarrhea Surgical History Colonoscopy, (repeat 5 years) 0 01/13/2022 Surgical History EGD 10/2013 Surgical History Tonsillectomy Hospitalization History see surgical history [facility] Other Summary Purpose Family History No Family History Records FoundNo Family History Records FoundNo Family History Records Found Advance Directives No Advanced Directives Records FoundNo Advanced Directives Records FoundNo Advanced Directives Records Found Additional Source Comments (unrecognized sect ion and content) No Status Records FoundNo Status Records FoundNo Status Records Found INFORMATION SOURCE (unrecogn ized section and content) DATE CREATED AUTHOR 01/18/2022 [facility] DATE CREATED AUTHOR AUTHOR'S ORGANIZ ATION [facility] DATE CREATED AUTHOR AUTHOR'S ORGANIZ ATION 08/02/2023 [facility] EPIC REASON FOR VISIT (unrecogniz ed section and content) POSSIBLE KIDNEY STONEPOSSIBL E KIDNEY STONECT Scan-Kidney StonesNo InformationCT resultsWellnessCardiac calcium scoreLab resultsNo InformationCreatinine Order FOR RECORDS PERTAINING TO PATIENTS WHO ARE OR HAVE BEEN ENROLLED IN A CHEMICAL DEPENDENCY/SUBSTANCEABUSE PROGRAM, SOME INFORMATION MAY BE OMITTED. This clinical summary was aggregated from multiple sources. Caution should be exercised in using it in the provision of clinical care. This summary normalizes information from multiple sources, and as a consequence, information in this document may materially change the coding, format and clinical context of patient data. In addition, data may be omitted in some cases. CLINICAL DECISIONS SHOULD BE BASED ON THE PRIMARY CLINICAL RECORDS. [employer] provides no warranty or guarantee of the accuracy or completeness of information in this document.
[2023-08-14 09:20] LABS: Estimated GFR (African America >60 (>=60); Estimated GFR (Non-African Ame >60 (>=60)
== END 2023-08-14 09:01 | disposition home or self-care (01) ==
LOC: LAB 09:00
PROVIDERS: PCP Internal Medicine; Visit Provider Internal Medicine
DX: R04.2 Hemoptysis (principal); J98.11 Atelectasis
CPT/HCPCS: 36415; 71260; 82565; Q9967

== ENCOUNTER 2024-07-08 10:41 | Outpatient (OUT) | payer MEDICAID, SELFPAY ==
--- OUTSIDE RECORDS SUMMARY | 2024-07-08 10:44 | XMS_ITS | CCD ---
Author Organization [facility] Care Team Providers Care Technical Spec Name Role Phone HSIVAM, DR ROBRETS Consulting Unavailable BALL, DR ROBERTS Attending Unavailable [...] Unavailable ZIEBER, DR MATTHIEU Hernandez Consulting Unavailable Olivier Langley Unavailable DORETHA THORNTON Attending Unavailable Manuel Kimball Unavailable DO Olivier Langley Primary Care Provider MD Stefano Rosado Attending Provider Stefano Rosado Attending Unavailable Stefano Rosado Admitting Unavailable Olivier Langley Primary Care Unavailable Allergies Allergy Classification Reported Allergen(s) Allergy Type Date of Onset Reaction(s) Facility (2 sources) patient allergy list reviewed by nurse or physicia Propensity to adverse reactions 5 Comment:Done SeatNinja Other Medications Current Medications Medication Drug Class(es) Dates Sig (Normalized) Sig (Original) aspirin 81 mg oral tablet (15 sources) Platelet Aggregation Inhibitor, Nonsteroidal Anti-inflammatory Drug Start: 10-05-2023 take 81 mg by mouth once daily Aspirin Active 81 MG PO Daily October 05, 2023 12:00am take 1 tablet by ned th every twenty-four hours Aspirin 81 81 MG 1 tablet Orally Once a day Active take 1 tablet by mouth once last y Aspirin 81 81 MG 1 tablet Orally Once a day Active atorvastatin 10 mg oral tablet (8 sources) HMG-CoA Reductase Inhibitor Start: 07-05-2023 take 1 tablet by mouth every twenty-four hours Atorvastatin Calcium 10 MG 1 tablet Orally Once a day Jun, Active cetirizine hydrochloride 10 mg oral tablet (14 sources) Histamine-1 Receptor Antagonist take 1 tablet by mouth every twenty-four hours ZyrTEC Allergy 10 MG 1 tablet Orally Once a day Active famotidine 40 mg oral tablet (7 sources) Histamine-2 Receptor Antagonist Start: 10-05-2023 take 40 mg by mouth once daily at bedtime Famotidine Active 40 MG PO Daily at bedtime October 05, 2023 12:00am Start: 07-19-2023 take 1 tablet by ned th every twenty-four hours Famotidine 40 MG 1 tablet at bedtime Orally Once a day for 30 days Jul, Active losartan potassium 25 mg oral tablet (14 sources) Angiotensin 2 Receptor Govind take 1 tablet by mouth every twenty-four hours Losartan Potassium 25 MG 1 tablet Orally Once a day Active metFORMIN hydrochloride 1000 mg oral tablet (15 sources) Biguanide Start: 01-14-20 take 1000 mg by mouth twice daily Metformin Active 1000 MG PO Twice daily January 12, 2022 11:00pm omeprazole 40 mg delayed release oral capsule (15 sources) Proton Pump Inhibitor Start: 01-14-20 take 40 mg by mouth once daily Omeprazole Active 40 MG PO Daily January 12, 2022 11:00pm tamsulosin hydrochloride 0.4 mg oral capsule (14 sources) alpha-Adrenergic Govind Start: 03-02-20 23 take 1 capsule by mouth once daily in the evening Tamsulosin HCl 0.4 MG 1 capsule Orally Once a day, in evening for 15 days Feb, Active True Metrix Blood Glucose Test - (5 sources) True Metrix Bloo d Glucose Test - USE DIRECTED TO TEST BLOOD SUGAR ONCE DAILY DIRECTED for 30 Active True Metrix Meter w/Device (9 sources) True Metrix Mete r w/Device USE DIRECTED ONCE DAILY for 30 Active Completed/Discontinued Medications Medication Drug Class(es) Dates Sig (Normalized) Sig (Original) ascorbic acid 4700 mg / polyethylene glycol 3350 530023 mg / potassium chloride 1015 mg / sodium ascorbate 5900 mg / sodium chloride 2690 mg / sodium sulfate 7500 mg powder for oral solution (14 sources) Osmotic Laxative, Vitamin C Start: 10-27-2013 MoviPrep 100 GM as directed Orally 1 for 1 Oct, Not-Taking/PRN Problems Active Problems Problem Classification Problem Date Documented Da te Episodic/Chronic Abdominal pain (18 sources) Flank pain; Translations: [Unspecified abdominal pain] Onset: 5 Episodic Diabetes mellitus with complications (20 sources) Type 2 diabetes mellitus with hyperglycemia; Translations: [Hyperglycemia due to type 2 diabetes mellitus] Onset: 2 Chronic Diabetes mellitus without complication (2 sources) Type 2 diabetes mellitus without complication; Translations: [Type 2 diabetes mellitus without complications] Onset: 4 Chronic Disorders of lipid metabolism (12 sources) Pure hyperglyceridemia; Translations: [Pure hyperglyceridemia] Onset: 9 Chronic Esophageal disorders (20 sources) Gastroesophageal reflux disease; Translations: [GERD [Gastroesophageal reflux disease]] Onset: 4 Chronic Esophageal disorders (10 sources) Esophageal disorders; Translations: [Gastroesophageal reflux disease with esophagitis without hemorrhage] Onset: 4 Essential hypertension (20 sources) Essential hypertension; Translations: [Essential (primary) hypertension] Chronic Genitourinary symptoms and ill-defined conditions (1 source) Nocturia Episodic Hyperplasia of prostate (12 sources) Benign prostatic hypertrophy with outflow obstruction; Translations: [Hypertrophy (benign) of prostate with urinary obstruction and other lower urinary tract symptoms [LUTS]] Onset: 6 Chronic Other and unspecified benign neoplasm (5 sources) Benign neoplasm of colon; Translations: [Benign neoplasm of colon] Episodic Other and unspecified benign neoplasm (16 sources) Benign neoplasm, unspecified site; Translations: [Adenomatous polyp] Onset: 2 Episodic Other ear and sense organ disorders (2 sources) Infective otitis externa; Translations: [Unspecified infective otitis externa] Onset: 4 Chronic Other gastrointestinal disorders (14 sources) Irritable bowel syndrome with diarrhea; Translations: [Irritable bowel syndrome with diarrhea] Chronic Other gastrointestinal disorders (5 sources) Diarrhea; Translations: [Diarrhea, unspecified] Episodic Other lower respiratory disease (3 sources) Hemoptysis Episodic Other nutritional; endocrine; and metabolic disorders (11 sources) Body mass index 30+ - obesity; Translations: [Body mass index 30.0-30.9, adult] Onset: 4 Chronic Other nutritional; endocrine; and metabolic disorders (2 sources) Obesity; Translations: [Obesity, unspecified] Chronic Other nutritional; endocrine; and metabolic disorders (2 sources) Morbid obesity; Translations: [Morbid (severe) obesity due to excess calories] Chronic Other nutritional; endocrine; and metabolic disorders (9 sources) Obesity caused by energy imbalance; Translations: [Other obesity due to excess calories] Chronic Other nutritional; endocrine; and metabolic disorders (2 sources) Overweight; Translations: [Overweight] Episodic Other nutritional; endocrine; and metabolic disorders (1 source) Overweight Episodic Other screening for suspected conditions (not mental disorders or infectious disease) (2 sources) Encounter for screening for malignant neoplasm of prostate; Translations: [Patient encounter status] Episodic Spondylosis; intervertebral disc disorders; other back [...] and of unspecified site] Onset: 12-11-2016 Episodic Mycoses (2 sources) Candidal balanitis; Translations: [Candidal [...] Test Name Value Interpretation Reference Range Facility Glucose Glucometer (dC) [M ass/Vol]Ordered By: Stefano Rosado on 10-05-2023 Glucose [Mass/Vol] 106 mg/dL [facility] Comment on above: Random Glucose Refer ence Range is dependent on time and content of last meal. Glucose of more than 200 mg/dL in a nonstressed, ambulatory subject supports the diagnosis of Diabetes Mellitus. Glucose Poct Glucometerson 0 10-05-2023 Glucose [Mass/Vol] 106 mg/dL Normal [facility] Comment on above: Result Comment: [place] Glucose Reference Range is dependent on time and content of last meal. Glucose of more than 200 mg/dL in a nonstressed, ambulatory subject supports the diagnosis of Diabetes Mellitus. PERFORMED BY: [facility] [address] [place] [address] PATHOLOGIST [employer] SHANIA DOMINGO M.D. Performed By: #### G LULS #### Point of Care testing , GLYCOHEMOGLOBIN A1Con 2021 ADA RECOMMENDATION SEE BELOW Normal [facility] Comment on above: Result Comment: ADA RECOMMENDED LIMIT 4.0 - 6.0 ADA THERAPEUTIC TARGET < 7.0 ACTION SUGGESTED > 7.0 Performed By: #### A 1C #### [facility] [address] [place] [address] Dr. Van Jernigan Glucose [Mass/Vol] 143 mg/dL Normal [facility] Comment on above: Performed By: #### A 1C #### [facility] [address] [place] [address] Dr. Van Jernigan HbA1c (Bld) [Mass fraction] 6.6 % Critically high 4.5-6.2 [facility] Comment on above: Performed By: #### A 1C #### [facility] [address] [place] [address] Dr. Van Jernigan Covid-19 PCR (CVDTB)on 04-16 SARS-CoV-2 (COVID-19) RNA MATI+probe Ql (Unsp spec) Not detected Normal NOT DETECTED [facility] Comment on above: Result Comment: This test is not yet approved or cleared by the [place] FDA. When there are no FDA-approved or cleared tests available, and other criteria are met, FDA can make tests available under an emergency access mechanism called an Emergency Use Authorization (EUA). The EUA for this test is supported by the Human Resources Benefits Administrator of Health and Human Service's (HHS's) declaration [...] consistent with SARS-CoV-2. Performed By: #### C VDTBH #### [facility] [address] [place] [address] Dr. Van Jernigan Covid-19 PCR (CVDTBH)on SARS-CoV-2 (COVID-19) RNA MATI+probe Ql (Unsp spec) Not detected Normal NOT DETECTED [facility] Comment on above: Result Comment: This test is not yet approved or cleared by the [place] FDA. When there are no FDA-approved or cleared tests available, and other criteria are met, FDA can make tests available under an emergency access mechanism called an Emergency Use Authorization (EUA). The EUA for this test is supported by the Human Resources Benefits Administrator of Health and Human Service's (HHS's) declaration [...] SARS-CoV-2. Performed By: #### C VDTB #### [facility] [address] [place] [address] Dr. Van Jernigan XR LSPINE 2_3 VIEWSon 2021 XR LSPINE [...] MATTHIEU ELIZONDO Date: 2021-12-24 11:59 Normal [facility] CBC AUTO DIFFon 10-16-2021 BASO # 0.1 103/ul Normal 0.0-0.1 [facility] Comment on above: Performed By: #### C BC #### [facility] [address] [place] [address] Dr. Van Jernigan Basophils/100 WBC (Bld) 0.7 % Normal 0.2-2.0 [facility] Comment on above: Performed By: #### C BC #### [facility] [address] [place] [address] Dr. Van Jernigan EO # 0.2 103/ul Normal 0.0-0.7 [facility] Comment on above: Performed By: #### C BC #### [facility] [address] [place] [address] Dr. Van Jernigan Eosinophils/100 WBC (Bld) 2.5 % Normal 0.9-7.0 [facility] Comment on above: Performed By: #### C BC #### [facility] [address] [place] [address] Dr. Van Jernigan Erythrocyte distribution width (RBC) [Ratio] 12.6 % Normal 11.0-15.0 [facility] Comment on above: Performed By: #### C BC #### [facility] [address] [place] [address] Dr. Van Jernigan Hematocrit (Bld) [Volume fraction] 45.7 % Normal 42.0-54.0 [facility] Comment on above: Performed By: #### C BC #### [facility] [address] [place] [address] Dr. Van Jernigan Hemoglobin (Bld) [Mass/Vol] 15.4 g/dL Normal 14.0-18.0 [facility] Comment on above: Performed By: #### C BC #### [facility] [address] [place] [address] Dr. Van Jernigan IG # 0.03 10e3/ul Normal 0.00-0.03 [facility] Comment on above: Performed By: #### C BC #### [facility] [address] [place] [address] Dr. Van Jernigan IG % 0.4 % Normal 0.0-0.5 [facility] Comment on above: Performed By: #### C BC #### [facility] [address] [place] [address] Dr. Van Jernigan LYMPH # 1.5 103/ul Normal 1.2-3.8 [facility] Comment on above: Performed By: #### C BC #### [facility] [address] [place] [address] Dr. Van Jernigan Lymphocytes/100 WBC (Bld) 22.7 % Normal 20.5-60.0 [facility] Comment on above: Performed By: #### C BC #### [facility] [address] [place] [address] Dr. Van Jernigan MANUAL DIFF REQ NO Normal [facility] Comment on above: Performed By: #### C BC #### [facility] [address] [place] [address] Dr. Van Jernigan MCH (RBC) [Entitic mass] 29.3 pg Normal 25.9-34.0 [facility] Comment on above: Performed By: #### C BC #### [facility] [address] [place] [address] Dr. Van Jernigan MCHC (RBC) [Mass/Vol] 33.7 g/dL Normal 29.9-35.2 [facility] Comment on above: Performed By: #### C BC #### [facility] [address] [place] [address] Dr. Van Jernigan MCV (RBC) [Entitic vol] 86.9 fL Normal 80.0-94.0 [facility] Comment on above: Performed By: #### C BC #### [facility] [address] [place] [address] Dr. Van Jernigan MONO # 0.7 103/ul Normal 0.3-0.8 [facility] Comment on above: Performed By: #### C BC #### [facility] [address] [place] [address] Dr. Van Jernigan Monocytes/100 WBC (Bld) 9.6 % Normal 1.7-12.0 [facility] Comment on above: Performed By: #### C BC #### [facility] [address] [place] [address] Dr. Van Jernigan NEUT # 4.3 103/ul Normal 1.4-6.5 [facility] Comment on above: Performed By: #### C BC #### [facility] [address] [address] [address] Van Jernigan Neutrophils/100 WBC (Bld) 64.1 % Normal 43.0-75.0 [facility] Comment on above: Performed By: #### C BC #### [facility] [address] [address] [address] Van Jernigan Platelet mean volume (Bld) [Entitic vol] 9.1 fL Critically low 9.5-13.5 [facility] Comment on above: Performed By: #### C BC #### [facility] [address] [place] [address] Dr. Van Jernigan PLT 214 103/ul Normal 150-450 [facility] Comment on above: Performed By: #### C BC #### [facility] [address] [place] [address] Dr. Van Jernigan RBC 5.26 106/ul Normal 4.70-6.10 [facility] Comment on above: Performed By: #### C BC #### [facility] [address] [place] [address] Dr. Van Jernigan WBC 6.8 103/ul Normal 4.0-11.0 [facility] Comment on above: Performed By: #### C BC #### [facility] [address] [place] [address] Dr. Van Jernigan LIPID PROFILEon 10-16-2021 CHOL-HDL RATIO NORM SEE BELOW Normal [facility] Comment on above: Result Comment: 3.3 - 4.4 LOW RISK 4.4 - 7.1 AVERAGE RISK 7.1 - 11.0 MODERATE RISK >11.0 HIGH RISK Performed By: #### C MP, LIPID #### [facility] [address] [place] [address] Dr. Van Jernigan Cholesterol [Mass/Vol] 165 mg/dL Normal <=200 [facility] Comment on above: Performed By: #### C MP, LIPID #### [facility] [address] [place] [address] Dr. Van Jernigan Cholesterol in HDL [Mass/Vol] 46 mg/dL Normal [facility] Comment on above: Performed By: #### C MP, LIPID #### [facility] [address] [address] [address] Van Jernigan Cholesterol in LDL [Mass/Vol] 86.0 mg/dL Normal [facility] Comment on above: Performed By: #### C MP, LIPID #### [facility] [address] [address] [address] Van Jernigan Cholesterol.total/Cho lesterol in HDL [Mass ratio] 3.6 {ratio} Normal [facility] Comment on above: Performed By: #### C MP, LIPID #### [facility] [address] [place] [address] Dr. Van Jernigan HDL NORMAL > or = 60 mg/dl - LOW CARDIOVASCULAR RISK <40 mg/dl - HIGH CARDIOVASCULAR RISK Normal [facility] Comment on above: Performed By: #### C MP, LIPID #### [facility] [address] [address] [address] Van Jernigan LDL CALC NORMAL SEE BELOW Normal [facility] Comment on above: Result Comment: <100 mg/dl OPTIMAL 100 - 129 mg/dl NEAR OR ABOVE OPTIMAL 130 - 159 mg/dl BORDERLINE HIGH 160 - 189 mg/dl HIGH >190 mg/dl VERY HIGH Performed By: #### C MP, LIPID #### [facility] [address] [address] [address] Van Jernigan Triglyceride [Mass/Vol] 165 mg/dL Critically high <=150 [facility] Comment on above: Performed By: #### C MP, LIPID #### [facility] [address] [address] [address] Van Jernigan VLDL CALC 33.0 mg/dL Normal [facility] Comment on above: Performed By: #### C MP, LIPID #### [facility] [address] [place] [address] Dr. Van Jernigan PROF 14(COMP METB)on 022 Albumin [Mass/Vol] 4.0 g/dL Normal 3.5-5.0 [facility] Comment on above: Performed By: #### C MP, LIPID #### [facility] [address] [address] [address] Van Jernigan Albumin/Globulin [Mass ratio] 1.1 {ratio} Normal [facility] Comment on above: Performed By: #### C MP, LIPID #### [facility] [address] [address] [address] Van Jernigan ALP [Catalytic activity/Vol] 82 U/L Normal 38-126 [facility] Comment on above: Performed By: #### C MP, LIPID #### [facility] [address] [address] [address] Van Jernigan ALT [Catalytic activity/Vol] 29 U/L Normal 21-72 [facility] Comment on above: Performed By: #### C MP, LIPID #### [facility] [address] [place] [address] Dr. Van Jernigan Anion gap [Moles/Vol] 9.0 mmol/L Normal [facility] Comment on above: Performed By: #### C MP, LIPID #### [facility] [address] [address] [address] Van Jernigan AST [Catalytic activity/Vol] 14 U/L Critically low 17-59 [facility] Comment on above: Performed By: #### C MP, LIPID #### [facility] [address] [address] [address] Van Jernigan Bilirubin [Mass/Vol] 0.7 mg/dL Normal 0.2-1.3 [facility] Comment on above: Performed By: #### C MP, LIPID #### [facility] [address] [address] [address] Van Jernigan Calcium [Mass/Vol] 8.8 mg/dL Normal 8.4-10.2 [facility] Comment on above: Performed By: #### C MP, LIPID #### [facility] [address] [address] [address] Van Jernigan Chloride [Moles/Vol] 104 mmol/L Normal 98-107 [facility] Comment on above: Performed By: #### C MP, LIPID #### [facility] [address] [address] [address] Van Jernigan CO2 [Moles/Vol] 29.4 mmol/L Normal 22.0-30.0 [facility] Comment on above: Performed By: #### C MP, LIPID #### [facility] [address] [address] [address] Van Jernigan Creatinine [Mass/Vol] 0.87 mg/dL Normal 0.66-1.25 [facility] Comment on above: Performed By: #### C MP, LIPID #### [facility] [address] [place] [address] Dr. Van Jernigan EGFR-AF ZAMBIAN >60 Normal >=60 [facility] Comment on above: Performed By: #### C MP, LIPID #### [facility] [address] [place] [address] Dr. Van Jernigan EGFR-NON AF ZAMBIAN >60 Normal >=60 [facility] Comment on above: Performed By: #### C MP, LIPID #### [facility] [address] [place] [address] Dr. Van Jernigan Globulin (S) [Mass/Vol] 6.3 g/dL Normal [facility] Comment on above: Performed By: #### C MP, LIPID #### [facility] [address] [place] [address] Dr. Van Jernigan Glucose [Mass/Vol] 141 mg/dL Critically high 74-106 [facility] Comment on above: Performed By: #### C MP, LIPID #### [facility] [address] [place] [address] Dr. Van Jernigan Potassium [Moles/Vol] 4.4 mmol/L Normal 3.4-5.0 [facility] Comment on above: Performed By: #### C MP, LIPID #### [facility] [address] [place] [address] Dr. Van Jernigan Protein [Mass/Vol] 7.6 g/dL Normal 6.1-8.2 [facility] Comment on above: Performed By: #### C MP, LIPID #### [facility] [address] [place], [place] [address] Dr. Van Jernigan Sodium [Moles/Vol] 138 mmol/L Normal 137-145 [facility] Comment on above: Performed By: #### C MP, LIPID #### [facility] [address] [address] [address] Van Jernigan Urea nitrogen [Mass/Vol] 16.0 mg/dL Normal 9.0-20.0 [facility] Comment on above: Performed By: #### C MP, LIPID #### [facility] [address] [address] [address] Van Jernigan Urea nitrogen/Creatinine [Mass ratio] 18.4 mg/mg Normal [facility] Comment on above: Performed By: #### C MP, LIPID #### [facility] [address] [address] [address] Van Jernigan GLYCOHEMOGLOBIN A1Con 2021 ADA RECOMMENDATION ADA THERAPEUTIC TARGET 6.0 - 7.0 ACTION SUGGESTED > 7.0 Normal [facility] Comment on above: Performed By: #### D ATA1C #### [facility] [address] [address] [address] Van Jernigan Glucose [Mass/Vol] 151 mg/dL Normal [facility] Comment on above: Performed By: #### D ATA1C #### [facility] [address] [address] [address] Van Jernigan HbA1c (Bld) [Mass fraction] 6.9 % Critically high <=6.0 [facility] Comment on above: Performed By: #### D ATA1C #### [facility] [address] [address] [address] Van Jernigan Vital Signs Date Time Vital Sign Value Performing Clinician Facility 10-05-2023 14:18-0500 Diastolic blood pressure 96 mm[Hg] DO [place] Work Phone: [facility] 10-05-2023 14:18-0500 Heart rate 69 /min DO [employer] Work Phone: [facility] 10-05-2023 14:18-0500 Respiratory rate 16 /min DO Olivier Ball Work Phone: [facility] 10-05-2023 14:18-0500 SaO2% (BldA) [Mass fraction] 98 % DO Olivier Ball Work Phone: [facility] 10-05-2023 14:18-0500 Systolic blood pressure 142 mm[Hg] DO Olivier Ball Work Phone: [facility] 10-05-2023 13:00-0500 Body height 157.48 cm DO Olivier Ball Work Phone: [facility] 10-05-2023 13:00-0500 Body weight 70.3 kg DO Olivier Ball Work Phone: [facility] 07-19-2023 14:00-0500 Body height 157.48 cm Olivier Ball Other [facility] 07-19-2023 14:00-0500 Body mass index (BMI) [Ratio] 28.53 kg/m2 Olivier Ball Other [facility] Other 07-19-2023 14:00-0500 Body weight 70.76 kg Olivier Ball Other [facility] 07-19-2023 14:00-0500 Diastolic blood pressure 77 mm[Hg] Olivier Ball Other [facility] 07-19-2023 14:00-0500 Respiratory rate 16 /min Olivier Ball Other [facility] Other 07-19-2023 14:00-0500 Systolic blood pressure 129 mm[Hg] Olivier Ball Other [facility] 06-04-2023 13:30-0400 Body height 157.48 cm Olivier Ball Other [facility] Other 06-04-2023 13:30-0400 Body mass index (BMI) [Ratio] 28.35 kg/m2 Olivier Ball Other [facility] Other 06-04-2023 13:30-0400 Body weight 70.31 kg Olivier Ball Other [facility] Other 06-04-2023 13:30-0400 Diastolic blood pressure 84 mm[Hg] Olivier Ball Other [facility] Other 06-04-2023 13:30-0400 Respiratory rate 12 /min Olivier Ball Other [facility] Other 06-04-2023 13:30-0400 Systolic blood pressure 135 mm[Hg] Olivier Ball Other [facility] Other 03-02-2023 15:45-0400 Body weight 71.22 kg Olivier Ball Other [facility] Other 03-02-2023 15:45-0400 Diastolic blood pressure 81 mm[Hg] Olivier Ball Other [facility] Other 03-02-2023 15:45-0400 SaO2% (BldA) [Mass fraction] 99 % Olivier Ball Other [facility] Other 03-02-2023 15:45-0400 Systolic blood pressure 136 mm[Hg] Olivier Ball Other [facility] Other Encounters Encounter Date Encounter Type Care Provider Facility Start: 10-05-2023 End: 10-05-2023 ambulatory Stefano Rosado Facility:[facility] Start: 10-05-2023 Non-patient / Non-visit DO Olivier Ball Work Phone: [facility] Work Phone: Start: 10-05-2023 End: 10-05-2023 Admission to same day surgery center DO Olivier Ball Work Phone: [facility] Work Phone: Start: 10-05-2023 End: 10-05-2023 ambulatory DO Olivier Langley Work Phone: [facility] Work Phone: Start: 09-24-2023 End: 09-24-2023 ambulatory Manuel Oroscoack Other [facility] Other Start: 09-24-2023 Telephone encounter Manuel Moore [facility] Start: 08-25-2023 End: 08-25-2023 ambulatory Olivier Langley Other [facility] Other Start: 08-25-2023 Telephone encounter Olivier Ball [facility] Start: 08-17-2023 End: 08-17-2023 ambulatory Olivier Ball Other [facility] Other Start: 08-17-2023 Telephone encounter Olivier Ball [facility] Start: 08-13-2023 End: 08-13-2023 ambulatory Olivier Ball Other [facility] Other Start: 08-13-2023 Telephone encounter Olivier Ball [facility] Start: 08-02-2023 Telephone encounter Olivier Ball [facility] Start: 08-02-2023 End: 08-02-2023 ambulatory DORETHA ISABELMIS Not Available Start: 07-19-2023 End: 07-19-2023 ambulatory Olivier Ball Other [facility] Other Start: 07-19-2023 Office outpatient visit 15 minutes Olivier Ball [facility] Start: 07-19-2023 End: 07-19-2023 Patient encounter procedure DO Olivier Ball Work Phone: [facility] Work Phone: Start: 07-12-2023 End: 07-12-2023 ambulatory Olivier Ball Other [facility] Other Start: 07-12-2023 Telephone encounter Olivier Langley [facility] Start: 07-02-2023 End: 07-02-2023 ambulatory Olivier Langley Other [facility] Other Start: 07-02-2023 Telephone encounter Olivier Langley [facility] Start: 06-04-2023 End: 06-04-2023 ambulatory Olivier Langley Other [facility] Other Start: 06-04-2023 Encounter for genera l adult medical examination without abnormal findings Olivier Langley [facility] Start: 06-04-2023 Periodic preventive med est patient 40-64yrs Olivier Langley [facility] Start: 04-01-2023 End: 04-01-2023 ambulatory Olivier Langley Other [facility] Other Start: 04-01-2023 Telephone encounter Olivier Langley [facility] Start: 03-29-2023 End: 03-29-2023 ambulatory Olivier Langley Other [facility] Other Start: 03-29-2023 Telephone encounter Olivier Langley [facility] Start: 03-03-2023 End: 03-03-2023 ambulatory Olivier Langley Other [facility] Other Start: 03-03-2023 Telephone encounter Olivier Langley [facility] Start: 03-02-2023 End: 03-02-2023 ambulatory Olivier Langley Other [facility] Other Start: 03-02-2023 Office outpatient visit 15 minutes Olivier Langley [facility] Start: 06-09-2022 End: 06-10-[address] OLIVIER LANGLEY Facility:[facility] Start: 04-27-2022 End: 04-28-[address] OLIVIER LANGLEY Facility:[facility] Start: 04-24-2022 End: 04-24-[address] AMARJIT CUBA Facility:[facility] Start: 01-13-2022 Adult health examination Olivier Langley Other [facility] Other Start: 12-24-2021 End: 12-25-[address] OLIVIER LNAGLEY Facility:[facility] Start: 10-17-2021 Encounter for genera l adult medical examination without abnormal findings DR OLIVIER LANGLEY [facility] Start: 10-16-2021 End: 10-17-[address] OLIVIER LANGLEY Facility:[facility] Start: 10-16-2021 End: 10-17-2021 Encounter for general adult medical examination without abnormal findings DR OLIVIER LANGLEY Facility:[facility] Start: 09-29-2021 End: 09-30-[address] DEAN LISTED REQUEST Facility:[facility] Procedures Date Procedure Procedure Detail Performing Clinician Start: 10-05-2023 Esophagogastroduodenoscopy DO Olivier francis Work Phone: Start: 09-29-[address] OLIVIER LANGLEY Comment on above: Performed By: #### DATPSA #### [facility] [address] [place] [address] Dr. Van Jernigan Start: 10-24-2013 Screening for malignant neoplasm of prostate Olivier Langley Other Screening for malign ant neoplasm of colon Olivier Langley Other Plan of Treatment Date Care Activity Detail Author Start: 10-05-2023 [facility] Immunizations Immunization Date Immunization Notes Care Provider Fa cili 06-04-2023 influenza, injectabl e, quadrivalent, preservative free Olivier Langley Other [facility] 05-26-2021 influenza virus vaccine, split virus (incl. purified surface antigen) Olivier Langley Other [facility] Other 05-26-2021 influenza virus vaccine, unspecified formulation DO Olivier Langley Work Phone: [facility] 10-23-2020 COVID-19 Ad26.COV2.S (Lizeth) DO Olivier Langley Work Phone: [facility] 05-12-2020 influenza virus vaccine, split virus (incl. purified surface antigen) Olivier Langley Other [facility] Other 05-12-2020 influenza virus vaccine, unspecified formulation DO Olivier Langley Work Phone: [facility] 08-03-2019 COVID-19 mRNA, Comirnaty (Pfizer) DO Olivier Langley Work Phone: [facility] Payers Date Payer Category Payer Medicaid [id number] 2. [id number] 1960 Unknown [id number] 2.16.84 [id number] 1960 Unknown [id number] 2.16.84 [id number] 1960 Unknown [id number] 2.16.84 [id number] 1960 Unknown [id number] 2.16.84 [id number] 1960 Unknown [id number] 2.16.84 [id number] 1960 Unknown [id number] [id number] 1957 Self-pay 1957 Unknown [id number] Unknown [id number] 2.16.84 [id number] Unknown HCAP/HFA/FAP Active [id number] Unknown [id number] 2.16.8 [id number] Social History Date Type Detail Facility Unknown if ever smoked [facility] Other Sex Assigned At Sex Assigned At Bir th [facility] Other Start: 10-05-2023 Tobacco smoking status NHIS Never smoked tobacco (finding) [facility] Start: 1960 Sex Assigned At Male F [facility] Goals Date Patient Goal Desired Activity /State Clinical Notes 03-02-2023 to 10-05-2023 Note Date & Type Note Facility 10-05-2023 Procedure note [facility] 08-13-2023 Evaluation note Encounter Date Diagnosis Assessment Notes Jul, Cough with hemoptysis (ICD-10 - R04.2) [facility] Other 12-18-2023 Evaluation note* Encounter Date Diagnosis Assessment Notes Treatment Notes Treatment Clinical Notes Jul, Cough with hemoptysis (ICD-10 - R04.2) [facility] Other 12-18-2023 Reason for referral (narrative)* Reason 08/02/23 Referral for blood streaked sputum. Diagnosis 1 Cough with hemoptysi s (R04.2) Referral Organization [facility] Referring Provider First Name Olivier Referring Provider Last Name Shivam Referring Provider Specialty Internal Me dicine Referred Organization [facility] Referred Provider Doretha Thornton Referred Address ,[place], [place],[address] Referred Provider Specialty Ear, Nose an d Throat Referral Priority Routine Referral Appointment Date 2023-08-02 General Notes Patient w/ increased production of phlegm, resulting in a harsh cough. While clearing his throat, he noticed blood streaking in the phlegm. He denies epistaxis, sore throat, dysphagia, heartburn, coughing, SOB or chest pain. He has requested a referral to ENT. I did explain that further testing may be required to explain the blood in his sputum. Carissa Rivero 07/20/2023 03:24:06 PM >received today, pt has medicaid insurance will send to Dr. Thornton. attachments made, notes locked, referral faxed Carissa Rivero 07/26/2023 01:02:06 PM >[facility] was received on 07/21. no appt scheduled yet. will follow back up Carissa Rivero 08/02/2023 01:19:56 PM >note in chart for review. closing out referral Reason *Waiting for appt Referral for EGD Diagnosis 1 Gastroesophageal ref lux disease with esophagitis without hemorrhage (K21.00) Diagnosis 2 Cough with hemoptysi s (R04.2) Referral Organization [facility] Shivam hamm Referring Provider First Name Olivier Referring Provider Last Name Shivam Referring Provider Specialty Internal Me yris Referred Organization [facility] Gastroenterolo gy Referred Provider Stefano Rosado Referred Address [address],[facility] [address] ,[place], [place],[address] Referred Provider Specialty Gastroentero logy Referral Priority Routine General Notes This patient was see n for blood streaked phlegm. He stated that after clearing his throat, he had noticed blood in the mucous. He is a nonsmoker and requested a referral to ENT. I recommended further testing, which I explained would include a referral for an EGD and orders for a CT chest. He denies dysphagia, hematemesis, melena or hematochezia. He denies cough, wheezing or SOB. He was instructed to avoid NSAIDs medications. He denies easy bruising, epistaxis, hematuria, melena or hematochezia. His ENT evaluation was unremarkable. Carissa Rivero 08/26/2023 06:46:10 PM >received today, referral faxed P [facility] Other 12-04-2023 Evaluation note* Encounter Date Diagnosis Assessment Notes Treatment Notes Treatment Clinical Notes Jul, Gastroesophageal ref lux disease with esophagitis without hemorrhage (ICD-10 - K21.00) Diet instructions: Smaller portions, avoid eating and laying flat, avoid eating or drinking prior to bedtime. Weight loss. Add Pepcid to PPI May require EGD if symptoms persist Jul, Cough with hemoptysi s (ICD-10 - R04.2) Unsure etiology between GI, ENT and Pulmonary systems. Patient convinced due to throat problem and requesting referral to ENT. May require EGD, CT chest if etiology of blood not found. Jul, Hypercholesteremia (ICD-10 - E78.00) Instructed on diet and exercise with continued statin therapy.Discussed the beneficial effects of lowering cholesterol in reducing the risk for cerebrovascular and cardiovascular disease. Jul, Controlled type 2 diabetes mellitus with hyperglycemia, without long-term [...] Microalbumin, Dilated eye exam and Foot exam Jul, Primary hypertension (ICD-10 - I10) This patient is instructed to consume a healthy, low-fat, low-salt diet. They are also encouraged to continue exercise to achieve/maintain a normal BMI. [facility] Other 11-17-2023 Evaluation note* Encounter Date Diagnosis Assessment Notes Treatment Notes Treatment Clinical Notes Jun, Hypercholesteremia (ICD-10 - E78.00) [facility] Other 10-20-2023 Evaluation note* Encounter Date Diagnosis Assessment Notes Treatment Notes Treatment Clinical Notes May, Essential hypertensi on (ICD-10 - I10) This patient is instructed to consume a healthy, low-fat, low-salt diet. They are also encouraged to continue exercise to achieve/maintain a normal BMI. May, Wellness examination (ICD-10 [...] E11.42) Inspect feet daily for cuts and calluses.Recommend diabetic shoes and inserts to prevent callus [...] specific antigen) (ICD-10 - Z12.5) Yearly screening [facility] Other 07-18-2023 Evaluation note* Encounter Date Diagnosis Assessment Notes Treatment Notes Treatment Clinical Notes Feb, Essential hypertension (ICD-10 - I10) [...] ER for increased pain, fever or vomiting. [facility] Other Evaluation noteNo InformationNort [employer] Other Evaluation noteNo assessment information available [facility] Work Phone: History and physical note Author Stefano Rosado [facility] October 05, 2023 1:38pm Note Date/Time October 05, 2023 1:38pm [facility] [address] [place] [address] Gastroenterology H&P Signed Patient: Miguel Mckinney MR#: [id number] : 1960 Acct:[id number] Age/Sex: 62 / M Adm Date: 4 Loc: Room: Type: [facility] Attending Dr: Stefano Rosado MD Copies to: DO Stefano Wilson MD~ Date of Service: 10/05/2023 HISTORY & PHYSICAL: Patient's history with special attention to the cardiovascular, pulmonary systems and the current problem was reviewed with the patient immediately prior to the procedure. Present medications and doses reviewed in the EMR. Allergies and pertinent laboratory tests were also reviewedat this time in the EMR. The physical examination, as below, was then performed. Indication, assessment and HPI: 62-year-old male presents for EGD to evaluate history of GERD. Symptoms fairly well-controlled with famotidine nightly, omeprazole daily. Patient states he is sometimes symptomatic when he is not compliant with dietary and lifestyle modification. Family history of GI malignancy? No PHYSICAL EXAMINATION Mouth and Pharynx : Moist mucus membranes, normal dentition Cardiac: Regular rate, regular rhythm Pulmonary: Clear to auscultation bilaterally, no wheezing Neurological: Alert and oriented x3, no focal deficits noted Abdomen: Abdomen soft, non-tender REVIEW OF SYSTEMS Constitutional: Denies malaise, fevers Cardiovascular: Denies chest pain, palpitations Respiratory: Denies shortness of breath, wheezing Gastrointestinal: Per HPI Genitourinary: Denies dysuria, polyuria Musculoskeletal: Denies joint swelling, joint stiffness Neurological: Denies numbness, tingling Integumentary: Denies rashes, skin lesions Endocrine: Denies fatigue, weight loss Written informed consent obtained from the patient. Risks (including but not limited to perforation, infection, bloating, bleeding, need for emergent surgeryand loss of life), benefits and alternatives explained and questions answered. The patient verbalized understanding. Based on history patient is an appropriate candidate for the procedure. Stefano Rosado MD Documented By: Stefano Rosado MD 10/05/23 2388 Signed By: <Electronically signed by Stefano Rosado MD> 10/05/23 3224 [facility] Work Phone: History general Narrative - Reported* Type Description Date Medical History Adenomatous polyp Medical History Essential hypertension Medical History Controlled type 2 di abetes mellitus with hyperglycemia, without long-term current use of insulin Medical History Gastroesophageal ref lux disease with esophagitis without hemorrhage Medical History Type 2 diabetes sophia itus with diabetic polyneuropathy, without long-term current use of insulin Medical History Irritable bowel syndrome with di arrhea Surgical History Colonoscopy 01/13/2022 Surgical History EGD 10/2013 Surgical History Tonsillectomy Hospitalization History see surgical history [facility] Other History general Narrative - Reported* Type Description Date Medical History Adenomatous polyp Medical History Essential hypertension Medical History Controlled type 2 di abetes mellitus with hyperglycemia, without long-term current use of insulin Medical History Gastroesophageal ref lux disease with esophagitis without hemorrhage Medical History Type 2 diabetes sophia itus with diabetic polyneuropathy, without long-term current use of insulin Medical History Irritable bowel syndrome with di arrhea Surgical History Colonoscopy, (repeat 5 years) 0 01/13/2022 Surgical History EGD 10/2013 Surgical History Tonsillectomy Hospitalization History see surgical history [facility] Other Summary Purpose Family History No Family History Records Found Relationship Condition Age at Onset Recorded Date/T mara father Diabetes mellitus Unknown family member Diabetes mellitus Unknown Advance Directives No Advanced Directives Records Found Advance Directive Response Recorded Date/ Time Advance Directives No January 08 9:44am Chief Complaint and Reason for Visit Chief Complaint Acid Reflux Gerd Gerd Additional Source Comments (unrecognized sect ion and content) No Status Records FoundNo Status Records FoundNo Status Records Found INFORMATION SOURCE (unrecogn ized section and content) DATE CREATED AUTHOR 06/14/2022 [facility] DATE CREATED AUTHOR AUTHOR'S ORGANIZ ATION 08/02/2023 [facility] EPIC DATE CREATED AUTHOR AUTHOR'S ORGANIZ ATION 10/12/2023 [facility] REASON FOR VISIT (unrecogniz ed section and content) POSSIBLE KIDNEY STONEPOSSIBL E KIDNEY STONECT Scan-Kidney StonesNo InformationCT resultsWellnessCardiac calcium scoreLab resultsNo InformationCreatinine OrderCT resultsacid refluxReferralGastro Referral Care Teams (unrecognized sec tion and content) Team Status: Active Member Role Status Dates Olivier Langley DO Primary Care Provider Active Team Status: Inactive Member Role Status Dates Olivier Langley DO Attending Provider Active Sta rt: July 19, 2023 End: July 19, 2023 Team Status: Inactive Member Role Status Dates Olivier Langley DO Primary Care Provider Active Start: October 05, 2023 End: October 05, 2023 Stefano Rosado MD Attending Provider Active S tart: October 05, 2023 End: October 05, 2023 Team Status: Active Member Role Status Dates Olivier Langley DO Primary Care Provider Active Start: October 05, 2023 Stefano Rosado MD Attending Provider, Other Provider Active Start: October 05, 2023 FOR RECORDS PERTAINING TO PATIENTS WHO ARE [...] BE BASED ON THE PRIMARY CLINICAL RECORDS. [facility] [employer] provides no warranty or guarantee of the accuracy or completeness of information in this document.
[2024-07-08 10:53] LABS: Basophils Absolute Auto 0.1 10^3/uL (0.0-0.1); Basophils Percent Auto 0.8 % (0.2-2.0); Eosinophils Absolute Auto 0.2 10^3/uL (0.0-0.7); Eosinophils Percent Auto 3.1 % (0.9-7.0); Hematocrit 46.2 % (42.0-54.0); Immature Granulocytes Abs Auto 0.02 10^3/uL (0.00-0.03); Immature Granulocytes Pct Auto 0.3 % (0.0-0.5); Lymphocytes Absolute Auto 1.4 10^3/uL (1.2-3.8); Mean Corpuscular HGB Conc 34.6 g/dL (29.9-35.2); Mean Corpuscular Hemoglobin 30.1 pg (25.9-34.0); Monocytes Absolute Auto 0.6 10^3/uL (0.3-0.8); Neutrophils Absolute Auto 4.2 10^3/uL (1.4-6.5); Neutrophils Percent Auto 64.8 % (43.0-75.0); Platelet Count 233 10^3/uL (150-450); Red Blood Count 5.31 10^6/uL (4.70-6.10); Red Cell Distribution Width 12.8 % (11.0-15.0); White Blood Count 6.5 10^3/uL (4.0-11.0)
[2024-07-08 11:21] LABS: Estimated Average Glucose 171 mg/dL; Glycohemoglobin A1C 7.6 % (4.5-6.2)
[2024-07-08 11:41] LABS: Alanine Aminotransferase 36 U/L (16-63); Albumin Level 3.6 g/dL (3.4-5.0); Alkaline Phosphatase 77 U/L (46-116); Anion Gap 13.4; Aspartate Amino Transferase 13 U/L (15-37); BUN Creatinine Ratio 17.2; Bilirubin Total 0.6 mg/dL (0.2-1.0); Calcium 8.6 mg/dL (8.5-10.1); Carbon Dioxide 26.6 mmol/L (21.0-32.0); Chloride 104 mmol/L (98-107); Chol HDL Ratio 3.8; Cholesterol 170 mg/dL (<=200); Estimated GFR (African America >60 (>=60 mL/min/1.73m^2); Estimated GFR (Non-African Ame >60 (>=60 mL/min/1.73m^2); Globulin 3.6 g/dL; Glucose 143 mg/dL (74-106); HDL Cholesterol 45 mg/dL (40-60); LDL Cholesterol Calculated 102.2 mg/dL; Sodium 140 mmol/L (136-145); Total Protein 7.2 g/dL (6.4-8.2); Triglycerides 114 mg/dL (<=150); VLDL CHOLESTEROL 22.8 mg/dL
[2024-07-08 11:45] LABS: Creatinine Urine Random 115.02 mg/dL (20.00-300.00); Microalbum Creatinine Ratio Ur 111.2 mg/g (0.0-29.9); Microalbumin Urine Random 12.8 mg/dL (<=30.0)
[2024-07-08 11:50] LABS: Prostate Specific Antigen Scrn 1.42 ng/mL (<=4.00)
== END 2024-07-08 10:42 | disposition home or self-care (01) ==
LOC: LAB 10:41
PROVIDERS: PCP Internal Medicine; Visit Provider Internal Medicine
DX: Z00.00 Encounter for general adult medical examination without abnormal findings (principal); Z12.5 Encounter for screening for malignant neoplasm of prostate
CPT/HCPCS: 36415; 80053; 80061; 82043; 82570; 83036; 85025; G0103

== ENCOUNTER 2024-09-19 15:34 | Outpatient (REF) | payer MEDICAID, SELFPAY ==
--- OUTSIDE RECORDS SUMMARY | 2024-09-25 15:38 | XMS_ITS | CCD ---
Author Organization [facility] Care Team Providers Care Hoisting Engineer Pile Driving Name Role Phone SHIVAM, DR ROBERTS Consulting [...] DORETHA THORNTON Attending Unavailable Manuel Kimball Unavailable [phone] DO Olivier Langley Primary Care Provider MD Stefano Rosado Attending Provider Stefano Rosado Attending Unavailable Stefano Rosado Admitting Unavailable Olivier Langley Primary Care Unavailable OLIVIER LANGLEY Primary Care Unavailable JHONATAN WILSON Attending Unavailable Allergies Allergy Classification Reported Allergen(s) Allergy Type Date of Onset Reaction(s) Facility (2 sources) patient allergy list reviewed by nurse or physicia Propensity to adverse reactions 5 Comment:Done [employer] Other Medications Current Medications Medication Drug Class(es) [...] 0.4 mg oral capsule (14 sources) alpha-Adrenergic Govidn Start: 03-02-20 23 take 1 capsule by [...] acid 4700 mg / polyethylene glycol 3350 394189 mg / potassium chloride 1015 mg / sodium ascorbate 5900 mg / sodium chloride 2690 mg / sodium sulfate 7500 mg powder for oral solution (14 sources) Osmotic Laxative, Vitamin C Start: 10-27-2013 MoviPrep 100 GM as directed Orally 1 for 1 Oct, Not-Taking/PRN Problems Active Problems Problem Classification Problem Date Documented Da te Episodic/Chronic Abdominal pain (20 sources) Flank pain; Translations: [Unspecified abdominal pain] Onset: 5 Episodic Calculus of urinary tract (2 sources) Calculus of ureter; Translations: [Unspecified renal colic] Onset: 5 Episodic Diabetes mellitus with complications [...] Test Name Value Interpretation Reference Range Facility CBC AND AUTO DIFFon 09-19-19 25 ABSOLUTE BASOPHIL 0.0 X10E9/L Normal 0.0-0.2 [facility] Comment on above: Performed By: #### C EVERETT OLSON, 3040-3 #### [facility] ([id number]) [address] [place] [address] 67397 ABSOLUTE NEUTROPHIL 4.5 X10E9/L Normal 1.5-6.6 [facility] Comment on above: Performed By: #### C EVERETT OLSON, 3040-3 #### [facility] ([id number]) [address] [place] [address] 05648 Basophils/100 WBC (Bld) 0.7 % Normal [facility] Comment on above: Performed By: #### C EVERETT OLSON, 3040-3 #### [facility] ([id number]) [address] [place] [address] 16322 Eosinophils (Bld) [#/Vol] 0.2 10*3/uL Normal 0.0-0.4 [facility] Comment on above: Performed By: #### Rose OLSON CMP, 3 #### [facility] ([id number]) [address] [place] [address] 20200 Eosinophils/100 WBC (Bld) 2.5 % Normal [facility] Comment on above: Performed By: #### Rose OLSON CMP, 3039-10 #### [facility] ([id number]) [address] [place] [address] 61666 Erythrocyte distribution width (RBC) [Ratio] 13.6 % Normal 11.5-15.0 [facility] Comment on above: Performed By: #### Rose OLSON CMP, 3039-10 #### [facility] ([id number]) [address] [place] [address] 87550 Hematocrit (Bld) [Volume fraction] 44.3 % Normal 39-49 [facility] Comment on above: Performed By: #### Rose OLSON CMP, 3039-10 #### [facility] ([id number]) [address] [place] [address] 23585 Hemoglobin (Bld) [Mass/Vol] 15.1 g/dL Normal 13.0-17.0 [facility] Comment on above: Performed By: #### Rose OLSON CMP, 3039-10 #### [facility] ([id number]) [address] [place] [address] 50137 Lymphocytes (Bld) [#/Vol] 1.7 10*3/uL Normal 1.0-3.5 [facility] Comment on above: Performed By: #### Rose OLSON CMP, 3 #### [facility] ([id number]) [address] [place] [address] 51348 Lymphocytes/100 WBC (Bld) 24.3 % Normal [facility] Comment on above: Performed By: #### Rose OLSON CMP, 3039- #### [facility] ([id number]) [address] [place] [address] 60215 MCH (RBC) [Entitic mass] 29.6 pg Normal 27-34 [facility] Comment on above: Performed By: #### Rose OLSON CMP, 3039-10 #### [facility] ([id number]) [address] [place] [address] 79044 MCHC (RBC) [Mass/Vol] 34.2 g/dL Normal 32-36 [facility] Comment on above: Performed By: #### Rose OLSON CMP, 3039-10 #### [facility] ([id number]) [address] [place] [address] 71562 MCV (RBC) [Entitic vol] 87 fL Normal 80-100 [facility] Comment on above: Performed By: #### Rose OLSON CMP, 3039-10 #### [facility] ([id number]) [address] [place] [address] 96879 Monocytes (Bld) [#/Vol] 0.6 10*3/uL Normal 0-0.9 [facility] Comment on above: Performed By: #### Rose OLSON CMP, 3039-10 #### [facility] ([id number]) [address] [place] [address] 52279 Monocytes/100 WBC (Bld) 8.6 % Normal [facility] Comment on above: Performed By: #### Rose OLSON CMP, 3039-10 #### [facility] ([id number]) [address] [place] [address] 27723 Neutrophils/100 WBC (Bld) 63.9 % Normal [facility] Comment on above: Performed By: #### C WHITNEY, CMP, 3039-3 #### [facility] ([id number]) [address] [place] [address] 33438 Platelet mean volume (Bld) [Entitic vol] 7.6 fL Normal 7-12 [facility] Comment on above: Performed By: #### C WHITNEY, CMP, 3039-3 #### [facility] ([id number]) [address] [place] [address] 04461 Platelets (Bld) [#/Vol] 246 10*3/uL Normal 150-450 [facility] Comment on above: Performed By: #### C WHITNEY, CMP, 3 #### [facility] ([id number]) [address] [place] [address] 29284 RBC COUNT 5.11 X10E12/L Normal 4.10-5.70 [facility] Comment on above: Performed By: #### C WHITNEY, CMP, 3039-10 #### [facility] ([id number]) [address] [place] [address] 66693 WBC (Bld) [#/Vol] 7.1 10*3/uL Normal 4.0-11.0 [facility] Comment on above: Performed By: #### C WHITNEY, CMP, 3 #### [facility] ([id number]) [address] [place] [address] 70905 COMPREHENSIVE METABOLIC PANE Mateo 09-19-2024 Albumin [Mass/Vol] 4.2 g/dL Normal 3.2-5.3 [facility] Comment on above: Performed By: #### C BCA, CMP, 3039-3 #### [facility] ([id number]) [address] [place] [address] 66251 ALP [Catalytic activity/Vol] 62 U/L Normal 39-130 [facility] Comment on above: Performed By: #### C BCA, CMP, 3039-3 #### [facility] ([id number]) [address] [place] [address] 57747 ALT [Catalytic activity/Vol] 31 U/L Normal 0-40 [facility] Comment on above: Performed By: #### C BCA, CMP, 3039-3 #### [facility] ([id number]) [address] [place] [address] 50369 Anion gap [Moles/Vol] 8 mmol/L Normal 5-15 [facility] Comment on above: Performed By: #### C BCA, CMP, 3039-3 #### [facility] ([id number]) [address] [place] [address] 42236 AST [Catalytic activity/Vol] 21 U/L Normal 0-41 [facility] Comment on above: Performed By: #### C BCA, CMP, 3039-3 #### [facility] ([id number]) [address] [place] [address] 87128 Bilirubin [Mass/Vol] 0.9 mg/dL Normal 0.3-1.2 [facility] Comment on above: Performed By: #### C BCA, CMP, 3039-3 #### [facility] ([id number]) [address] [place] [address] 39751 Calcium [Mass/Vol] 8.7 mg/dL Normal 8.5-10.5 [facility] Comment on above: Performed By: #### C BCA, CMP, 3039-3 #### [facility] ([id number]) [address] [place] [address] 15780 Chloride [Moles/Vol] 104 mmol/L Normal 98-109 [facility] Comment on above: Performed By: #### C BCA, CMP, 3039-3 #### [facility] ([id number]) [address] [place] [address] 74658 CO2 [Moles/Vol] 23 mmol/L Normal 22-32 [facility] Comment on above: Performed By: #### C EVERETT OLSON, 3040-3 #### [facility] ([id number]) [address] [place] [address] 73359 Creatinine [Mass/Vol] 0.92 mg/dL Normal 0.70-1.20 [facility] Comment on above: Result Comment: METH OD TRACEABLE TO IDMS STANDARD Performed By: #### C EVERETT OLSON, 0-3 #### [facility] ([id number]) [address] [place] [address] 58392 eGFR (CKD-EPI) NON-RACE DEPENDENT >90 Normal >59 [facility] Comment on above: Result Comment: Reported eGFR is based on the CKD-EPI 2020 equation that does not use a race coefficient. Performed By: #### C EVERETT OLSON, 3 #### [facility] ([id number]) [address] [place] [address] 86444 Glucose [Mass/Vol] 247 mg/dL High 65-99 [facility] Comment on above: Performed By: #### C WHITNEY [facility], 3039-3 #### [facility] ([id number]) [address] [place] [address] 45669 Potassium [Moles/Vol] 3.9 mmol/L Normal 3.5-5.0 [facility] Comment on above: Performed By: #### C EVREETT OLSON, 3040-3 #### [facility] ([id number]) [address] [place] [address] 06344 Protein [Mass/Vol] 7.3 g/dL Normal 6.0-8.0 [facility] Comment on above: Performed By: #### C EVERETT OLSON, 0-3 #### [facility] ([id number]) [address] [place] [address] 39817 Sodium [Moles/Vol] 135 mmol/L Normal 134-146 [facility] Comment on above: Performed By: #### C EVERETT OLSON, 3040-3 #### [facility] ([id number]) [address] [place] [address] Urea nitrogen [Mass/Vol] 18 mg/dL Normal 5-27 [facility] Comment on above: Performed By: #### C EVERETT OLSON, 3040-3 #### [facility] ([id number]) [address] [place] [address] CT ABDOMEN AND PELVIS WO CON Ton 09-19-2024 CT ABDOMEN AND PELVIS WO CONT CT ABDOMEN AND PELVIS WO CONT CLINICAL INFORMATION: Abdominal/flank pain, stone suspected. TECHNIQUE: CT Abdomen and Pelvis without intravenous contrast. Lack of IV contrast compromises evaluation of solid organs and vascular structures. All CT scans at this facility use dose modulation, iterative reconstruction, and/or weight based dosing when appropriate to reduce radiation dose to as low as reasonably achievable. COMPARISON: No relevant prior studies available. FINDINGS: Extreme lung bases are clear. Liver shows marked fatty infiltration with no definite worrisome lesion. Liver and spleen are not enlarged. The gallbladder is not dilated. Adrenal glands, right kidney, and pancreas are not enlarged. Multiple renal calculi are present bilaterally appearing punctate on the right. Largest on the left mid pole region measures 2.6 mm coronal reconstructed image 61 with bone windowing. There is mild left hydronephrosis and perinephric stranding present with left distal ureteric calculus measuring 2.7 mm on coronal reconstructed image 67 with bone windowing. Mild dilatation of left ureter present. The abdominal aorta shows normal caliber. Preaortic left renal vein is present without narrowing. Left and sigmoid colon are collapsed somewhat compromising their evaluation. No colonic diverticula seen. An abnormal appendix is not seen. Bone windows show no definite worrisome lesion. Urinary bladder is mildly dilated. IMPRESSION: 1. Low-grade obstructing distal left ureteric calculus measuring 2.7 mm. 2. Multiple nonobstructing bilateral small renal calculi present. 3. Marked fatty infiltration the liver. 4. Mild dilatation of urinary bladder. Finalized by Sue Devine MD on 09/19/2024 10:17 AM Normal [facility] LIPASEon 09-19-2024 Lipase [Catalytic activity/Vol] 40 U/L Normal 17-40 [facility] Comment on above: Performed By: #### C BCA, CMP, 3040-3 #### [facility] ([id number]) [address] [place] [address] 03237 URN MACROSCOPIC NURon 2024 BILIRUBIN TEX Negative Normal NEG [facility] Comment on above: Performed By: #### N UM #### [facility] ([id number]) [address] [place] [address] 94820 BLOOD/HGB TEX Large Abnormal NEG [facility] Comment on above: Performed By: #### N UM #### [facility] ([id number]) [address] [place] [address] 17279 GLUCOSE TEX >=1000 Abnormal NEG [facility] Comment on above: Performed By: #### N UM #### [facility] ([id number]) [address] [place] [address] 94075 KETONES TEX Negative Normal NEG [facility] Comment on above: Performed By: #### N UM #### [facility] ([id number]) [address] [place] [address] 23921 LEUKOCYTE ESTERASE TEX Negative Normal NEG [facility] Comment on above: Performed By: #### N UM #### [facility] ([id number]) [address] [place] [address] 00775 NITRITE TEX Negative Normal NEG [facility] Comment on above: Performed By: #### N UM #### [facility] ([id number]) [address] [place] [address] 03993 PH TEX 7.0 Normal 5.0-8.5 [facility] Comment on above: Performed By: #### N UM #### [facility] ([id number]) [address] [place] [address] PROTEIN TEX Negative Normal NEG [facility] Comment on above: Performed By: #### N UM #### [facility] ([id number]) [address] [place] [address] 17760 SPECIFIC GRAVITY TEX 1.020 Normal 1.003-1.035 [facility] Comment on above: Performed By: #### N UM #### [facility] ([id number]) [address] [place] [address] 41773 UROBILINOGEN TEX 0.2 eu/dL Normal <1.1 [facility] Comment on above: Performed By: #### N UM #### [facility] ([id number]) [address] [place] [address] 23169 Glucose Glucometer (BldC) [M ass/Vol]Ordered By: Stefano Rosado on 10-05-2023 Glucose [Mass/Vol] 106 mg/dL [facility] Comment on above: Random Glucose Refer ence Range is dependent on time and content of last meal. Glucose of more than 200 mg/dL in a nonstressed, ambulatory subject supports the diagnosis of Diabetes Mellitus. Glucose Poct Glucometerson 0 10-05-2023 Glucose [Mass/Vol] 106 mg/dL Normal [facility] Comment on above: Result Comment: [place] Glucose Reference Range is dependent on time and content of last meal. Glucose of more than 200 mg/dL in a nonstressed, ambulatory subject supports the diagnosis of Diabetes Mellitus. PERFORMED BY: [facility] [address] [place] [address] PATHOLOGIST PIZZA DRIVER SHANIA DOMINGO M.D. Performed By: #### G JUAREZLS #### Point of Care testing , GLYCOHEMOGLOBIN A1Con 2021 ADA RECOMMENDATION SEE BELOW Normal [facility] Comment on above: Result Comment: ADA RECOMMENDED LIMIT 4.0 - 6.0 ADA THERAPEUTIC TARGET < 7.0 ACTION SUGGESTED > 7.0 Performed By: #### A 1C #### [facility] [address] [address] [address] Van Jernigan Glucose [Mass/Vol] 143 mg/dL Normal [facility] Comment on above: Performed By: #### A 1C #### [facility] [address] [address] [address] Van Jernigan HbA1c (Bld) [Mass fraction] 6.6 % Critically high 4.5-6.2 [facility] Comment on above: Performed By: #### A 1C #### [facility] [address] [address] [address] Van Jernigan Covid-19 PCR (CVDTBH)on 04-16 SARS-CoV-2 (COVID-19) RNA MATI+probe Ql (Unsp spec) Not detected Normal NOT DETECTED [facility] Comment on above: Result Comment: This test is not yet approved or cleared by the [place] FDA. When there are no FDA-approved or cleared tests available, and other criteria are met, FDA can make tests available under an emergency access mechanism called an Emergency Use Authorization (EUA). The EUA for this test is supported by the Process Improvement Engineer of Health and Human Service's (HHS's) declaration [...] SARS-CoV-2. Performed By: #### C VDTBH #### [facility] [address] [place] [address] Dr. Van Jernigan Covid-19 PCR (CVDTBH)on SARS-CoV-2 (COVID-19) RNA MATI+probe Ql (Unsp spec) Not detected Normal NOT DETECTED [facility] Comment on above: Result Comment: This test is not yet approved or cleared by the [place] FDA. When there are no FDA-approved or cleared tests available, and other criteria are met, FDA can make tests available under an emergency access mechanism called an Emergency Use Authorization (EUA). The EUA for this test is supported by the Process Improvement Engineer of Health and Human Service's (HHS's) declaration [...] SARS-CoV-2. Performed By: #### C VDTB #### [facility] [address] [place] [address] Dr. Van Jernigan XR LSPINE 2_3 VIEWSon [...] MATTHIEU ELIZONDO Date: 2021-12-24 11:59 Normal [facility] CBC AUTO DIFFon 10-16-2021 BASO # 0.1 103/ul Normal 0.0-0.1 [facility] Comment on above: Performed By: #### C BC #### [facility] [address] [address] [address] Van Jernigan Basophils/100 WBC (Bld) 0.7 % Normal 0.2-2.0 [facility] Comment on above: Performed By: #### C BC #### [facility] [address] [place] [address] Dr. Van Jernigan EO # 0.2 103/ul Normal 0.0-0.7 [facility] Comment on above: Performed By: #### C BC #### [facility] [address] [place] [address] Dr. Van Jernigan Eosinophils/100 WBC (Bld) 2.5 % Normal 0.9-7.0 [facility] Comment on above: Performed By: #### C BC #### [facility] [address] [place] [address] Dr. Van Jernigan Erythrocyte distribution width (RBC) [Ratio] 12.6 % Normal 11.0-15.0 [facility] Comment on above: Performed By: #### C BC #### [facility] [address] [place] [address] Dr. Van Jernigan Hematocrit (Bld) [Volume fraction] 45.7 % Normal 42.0-54.0 [facility] Comment on above: Performed By: #### C BC #### [facility] [address] [place] [address] Dr. Van Jernigan Hemoglobin (Bld) [Mass/Vol] 15.4 g/dL Normal 14.0-18.0 [facility] Comment on above: Performed By: #### C BC #### [facility] [address] [place] [address] Dr. Van Jernigan IG # 0.03 10e3/ul Normal 0.00-0.03 [facility] Comment on above: Performed By: #### C BC #### [facility] [address] [place] [address] Dr. Van Jernigan IG % 0.4 % Normal 0.0-0.5 [facility] Comment on above: Performed By: #### C BC #### [facility] [address] [place] [address] Dr. Van Jernigan LYMPH # 1.5 103/ul Normal 1.2-3.8 [facility] Comment on above: Performed By: #### C BC #### [facility] [address] [place] [address] Dr. Van Jernigan Lymphocytes/100 WBC (Bld) 22.7 % Normal 20.5-60.0 [facility] Comment on above: Performed By: #### C BC #### [facility] [address] [place] [address] Dr. Van Jernigan MANUAL DIFF REQ NO Normal [facility] Comment on above: Performed By: #### C BC #### [facility] [address] [place] [address] Dr. Van Jernigan MCH (RBC) [Entitic mass] 29.3 pg Normal 25.9-34.0 [facility] Comment on above: Performed By: #### C BC #### [facility] [address] [place] [address] Dr. Van Jernigan MCHC (RBC) [Mass/Vol] 33.7 g/dL Normal 29.9-35.2 [facility] Comment on above: Performed By: #### C BC #### [facility] [address] [place] [address] Dr. Van Jernigan MCV (RBC) [Entitic vol] 86.9 fL Normal 80.0-94.0 [facility] Comment on above: Performed By: #### C BC #### [facility] [address] [place] [address] Dr. Van Jernigan MONO # 0.7 103/ul Normal 0.3-0.8 [facility] Comment on above: Performed By: #### C BC #### [facility] [address] [place] [address] Dr. Van Jernigan Monocytes/100 WBC (Bld) 9.6 % Normal 1.7-12.0 [facility] Comment on above: Performed By: #### C BC #### [facility] [address] [place] [address] Dr. Van Jernigan NEUT # 4.3 103/ul Normal 1.4-6.5 [facility] Comment on above: Performed By: #### C BC #### [facility] [address] [address] [address] Van Jernigan Neutrophils/100 WBC (Bld) 64.1 % Normal 43.0-75.0 [facility] Comment on above: Performed By: #### C BC #### [facility] [address] [address] [address] Van Jernigan Platelet mean volume (Bld) [Entitic vol] 9.1 fL Critically low 9.5-13.5 [facility] Comment on above: Performed By: #### C BC #### [facility] [address] [place] [address] Dr. Van Jernigan PLT 214 103/ul Normal 150-450 [facility] Comment on above: Performed By: #### C BC #### [facility] [address] [place] [address] Dr. Van Jernigan RBC 5.26 106/ul Normal 4.70-6.10 [facility] Comment on above: Performed By: #### C BC #### [facility] [address] [place] [address] Dr. Van Jernigna WBC 6.8 103/ul Normal 4.0-11.0 [facility] Comment on above: Performed By: #### C BC #### [facility] [address] [place] [address] Dr. Van Jernigan LIPID PROFILEon 10-16-2021 CHOL-HDL RATIO NORM SEE BELOW Normal [facility] Comment on above: Result Comment: 3.3 - 4.4 LOW RISK 4.4 - 7.1 AVERAGE RISK 7.1 - 11.0 MODERATE RISK >11.0 HIGH RISK Performed By: #### C MP, LIPID #### [facility] [address] [place] [address] Dr. Van Jernigan Cholesterol [Mass/Vol] 165 mg/dL Normal <=200 [facility] Comment on above: Performed By: #### C MP, LIPID #### [facility] [address] [place] [address] Dr. Van Jernigan Cholesterol in HDL [Mass/Vol] 46 mg/dL Normal [facility] Comment on above: Performed By: #### C MP, LIPID #### [facility] [address] [address] [address] Van Jernigan Cholesterol in LDL [Mass/Vol] 86.0 mg/dL Normal [facility] Comment on above: Performed By: #### C MP, LIPID #### [facility] [address] [address] [address] Van Jernigan Cholesterol.total/Cho lesterol in HDL [Mass ratio] 3.6 {ratio} Normal [facility] Comment on above: Performed By: #### C MP, LIPID #### [facility] [address] [address] [address] Van Jernigan HDL NORMAL > or = 60 mg/dl - LOW CARDIOVASCULAR RISK <40 mg/dl - HIGH CARDIOVASCULAR RISK Normal [facility] Comment on above: Performed By: #### C MP, LIPID #### [facility] [address] [place] [address] Dr. Van Jernigan LDL CALC NORMAL SEE BELOW Normal [facility] Comment on above: Result Comment: <100 mg/dl OPTIMAL 100 - 129 mg/dl NEAR OR ABOVE OPTIMAL 130 - 159 mg/dl BORDERLINE HIGH 160 - 189 mg/dl HIGH >190 mg/dl VERY HIGH Performed By: #### C MP, LIPID #### [facility] [address] [address] [address] Van Jernigan Triglyceride [Mass/Vol] 165 mg/dL Critically high <=150 [facility] Comment on above: Performed By: #### C MP, LIPID #### [facility] [address] [address] [address] Van Jernigan VLDL CALC 33.0 mg/dL Normal [facility] Comment on above: Performed By: #### C MP, LIPID #### [facility] [address] [address] [address] Van Jernigan PROF 14(COMP METB)on 022 Albumin [Mass/Vol] 4.0 g/dL Normal 3.5-5.0 [facility] Comment on above: Performed By: #### C MP, LIPID #### [facility] [address] [address] [address] Van Jernigan Albumin/Globulin [Mass ratio] 1.1 {ratio} Normal [facility] Comment on above: Performed By: #### C MP, LIPID #### [facility] [address] [address] [address] Van Jernigan ALP [Catalytic activity/Vol] 82 U/L Normal 38-126 [facility] Comment on above: Performed By: #### C MP, LIPID #### [facility] [address] [place] [address] Dr. aVn Jernigan ALT [Catalytic activity/Vol] 29 U/L Normal 21-72 [facility] Comment on above: Performed By: #### C MP, LIPID #### [facility] [address] [place] [address] Dr. Van Jernigan Anion gap [Moles/Vol] 9.0 mmol/L Normal [facility] Comment on above: Performed By: #### C MP, LIPID #### [facility] [address] [place] [address] Dr. Van Jernigan AST [Catalytic activity/Vol] 14 U/L Critically low 17-59 [facility] Comment on above: Performed By: #### C MP, LIPID #### [facility] [address] [place] [address] Dr. Van Jernigan Bilirubin [Mass/Vol] 0.7 mg/dL Normal 0.2-1.3 [facility] [facility] Comment on above: Performed By: #### C MP, LIPID #### [facility] [address] [place] [address] Dr. Van Jernigan Calcium [Mass/Vol] 8.8 mg/dL Normal 8.4-10.2 [facility] Comment on above: Performed By: #### C MP, LIPID #### [facility] [address] [place] [address] Dr. Van Jernigan Chloride [Moles/Vol] 104 mmol/L Normal 98-107 [facility] Comment on above: Performed By: #### C MP, LIPID #### [facility] [address] [address] [address] Van Jernigan CO2 [Moles/Vol] 29.4 mmol/L Normal 22.0-30.0 [facility] Comment on above: Performed By: #### C MP, LIPID #### [facility] [address] [place] [address] Dr. Van Jernigan Creatinine [Mass/Vol] 0.87 mg/dL Normal 0.66-1.25 [facility] Comment on above: Performed By: #### C MP, LIPID #### [facility] [address] [place] [address] Dr. Van Jernigan EGFR-AF HONDURAN >60 Normal >=60 [facility] Comment on above: Performed By: #### C MP, LIPID #### [facility] [address] [place] [address] Dr. Van Jernigan EGFR-NON AF HONDURAN >60 Normal >=60 [facility] Comment on above: Performed By: #### C MP, LIPID #### [facility] [address] [place] [address] Dr. Van Jerngian Globulin (S) [Mass/Vol] 6.3 g/dL Normal [facility] Comment on above: Performed By: #### C MP, LIPID #### [facility] [address] [place] [address] Dr. Van Jernigan Glucose [Mass/Vol] 141 mg/dL Critically high 74-106 [facility] Comment on above: Performed By: #### C MP, LIPID #### [facility] [address] [place] [address] Dr. Van Jernigan Potassium [Moles/Vol] 4.4 mmol/L Normal 3.4-5.0 [facility] Comment on above: Performed By: #### C MP, LIPID #### [facility] [address] [place] [address] Dr. Van Jernigan Protein [Mass/Vol] 7.6 g/dL Normal 6.1-8.2 [facility] Comment on above: Performed By: #### C MP, LIPID #### [facility] [address] [place] [address] Dr. Van Jernigan Sodium [Moles/Vol] 138 mmol/L Normal 137-145 [facility] Comment on above: Performed By: #### C MP, LIPID #### [facility] [address] [address] [address] Van Jernigan Urea nitrogen [Mass/Vol] 16.0 mg/dL Normal 9.0-20.0 [facility] Comment on above: Performed By: #### C MP, LIPID #### [facility] [address] [address] [address] Van Jernigan Urea nitrogen/Creatinine [Mass ratio] 18.4 mg/mg Normal [facility] Comment on above: Performed By: #### C MP, LIPID #### [facility] [address] [address] [address] Van Jernigan GLYCOHEMOGLOBIN A1Con 2021 ADA RECOMMENDATION ADA THERAPEUTIC TARGET 6.0 - 7.0 ACTION SUGGESTED > 7.0 Normal [facility] Comment on above: Performed By: #### D ATA1C #### [facility] [address] [address] [address] Van Jernigan Glucose [Mass/Vol] 151 mg/dL Normal [facility] Comment on above: Performed By: #### D ATA1C #### [facility] [address] [place] [address] Dr. Van Jernigan HbA1c (Bld) [Mass fraction] 6.9 % Critically high <=6.0 [facility] Comment on above: Performed By: #### D ATA1C #### [facility] [address] [address] [address] Van Jernigan Vital Signs Date Time Vital Sign Value Performing Clinician Facility 10-05-2023 14:18-0500 Diastolic blood pressure 96 mm[Hg] DO [employer] Work Phone: [facility] 10-05-2023 14:18-0500 Heart rate 69 /min DO [employer] Work Phone: [facility] 10-05-2023 14:18-0500 Respiratory rate 16 /min DO [employer] Work Phone: [facility] 10-05-2023 14:18-0500 SaO2% (BldA) [Mass fraction] 98 % DO Olivier Ball Work Phone: [facility] 10-05-2023 14:18-0500 Systolic blood pressure 142 mm[Hg] DO Olivier Ball Work Phone: [facility] 10-05-2023 13:00-0500 Body height 157.48 cm DO Olivier Ball Work Phone: [facility] 10-05-2023 13:00-0500 Body weight 70.3 kg DO Olivier Ball Work Phone: [facility] 07-19-2023 14:00-0500 Body height 157.48 cm Olivier Ball Other [facility] 07-19-2023 14:00-0500 Body mass index (BMI) [Ratio] 28.53 kg/m2 Olivier Ball Other [facility] [employer] Other 07-19-2023 14:00-0500 Body weight 70.76 kg Olivier Ball Other [facility] 07-19-2023 14:00-0500 Diastolic blood pressure 77 mm[Hg] Olivier Ball Other [facility] 07-19-2023 14:00-0500 Respiratory rate 16 /min Olivier Ball Other [facility] [employer] Other 07-19-2023 14:00-0500 Systolic blood pressure 129 mm[Hg] Olivier Ball Other [facility] 06-04-2023 13:30-0400 Body height 157.48 cm Olivier Ball Other [facility] [employer] Other 06-04-2023 13:30-0400 Body mass index (BMI) [Ratio] 28.35 kg/m2 Olivier Ball Other [facility] [employer] Other 06-04-2023 13:30-0400 Body weight 70.31 kg Olivier Ball Other [employer] Other 06-04-2023 13:30-0400 Diastolic blood pressure 84 mm[Hg] Olivier Ball Other [employer] Other 06-04-2023 13:30-0400 Respiratory rate 12 /min Olivier Ball Other [employer] Other 06-04-2023 13:30-0400 Systolic blood pressure 135 mm[Hg] Olivier Ball Other [employer] Other 03-02-2023 15:45-0400 Body weight 71.22 kg Olivier Ball Other [employer] Other 03-02-2023 15:45-0400 Diastolic blood pressure 81 mm[Hg] Olivier Ball Other [employer] Other 03-02-2023 15:45-0400 SaO2% (BldA) [Mass fraction] 99 % Olivier Ball Other [employer] Other 03-02-2023 15:45-0400 Systolic blood pressure 136 mm[Hg] Olivier Ball Other [employer] Other Encounters Encounter Date Encounter Type Care Provider Facility Start: 09-19-2024 End: 09-19-2024 Emergency department patient visit OLIVIER LANGLEY [facility] Start: 10-05-2023 End: 10-05-2023 ambulatory Stefano Rosado Facility:[facility] Start: 10-05-2023 Non-patient / Non-visit DO Olivier Langley Work Phone: [facility] Work Phone: Start: 10-05-2023 End: 10-05-2023 Admission to same day surgery center DO Olivier Ball Work Phone: [facility] Work Phone: Start: 10-05-2023 End: 10-05-2023 ambulatory DO Olivier Langley Work Phone: [facility] Work Phone: Start: 09-24-2023 End: 09-24-2023 ambulatory Manuel Alonsoormack Other [employer] Other Start: 09-24-2023 Telephone encounter Manuel Moore [facility] Start: 08-25-2023 End: 08-25-2023 ambulatory Olivier Langley Other [employer] Other Start: 08-25-2023 Telephone encounter Olivier Langley [facility] Start: 08-17-2023 End: 08-17-2023 ambulatory Olivier Langley Other [employer] Other Start: 08-17-2023 Telephone encounter Olivier Langley [facility] Start: 08-13-2023 End: 08-13-2023 ambulatory Olivier Langley Other [employer] Other Start: 08-13-2023 Telephone encounter Olivier Langley [facility] Start: 08-02-2023 Telephone encounter Olivier Langley [facility] Start: 08-02-2023 End: 08-02-2023 ambulatory DORETHA THORNTON Not Available Start: 07-19-2023 End: 07-19-2023 ambulatory Olivier Langley Other [employer] Other Start: 07-19-2023 Office outpatient visit 15 minutes Olivier Langley [facility] Start: 07-19-2023 End: 07-19-2023 Patient encounter procedure DO Olivier Ball Work Phone: [facility] Work Phone: Start: 07-12-2023 End: 07-12-2023 ambulatory Olivier Langley Other [employer] Other Start: 07-12-2023 Telephone encounter Olivier Langley [facility] Start: 07-02-2023 End: 07-02-2023 ambulatory Olivier Shivam Other [employer] Other Start: 07-02-2023 Telephone encounter Olivier Ball [facility] Start: 06-04-2023 End: 06-04-2023 ambulatory Olivier Ball Other [employer] Other Start: 06-04-2023 Encounter for genera l adult medical examination without abnormal findings Olivier Ball [facility] Start: 06-04-2023 Periodic preventive med est patient 40-64yrs Olivier Shivam [facility] Start: 04-01-2023 End: 04-01-2023 ambulatory Olivier Langley Other [employer] Other Start: 04-01-2023 Telephone encounter Olivier Ball [facility] Start: 03-29-2023 End: 03-29-2023 ambulatory Olivier Langley Other [employer] Other Start: 03-29-2023 Telephone encounter Olivier Ball [facility] Start: 03-03-2023 End: 03-03-2023 ambulatory Olivier Langley Other [employer] Other Start: 03-03-2023 Telephone encounter Olivier Ball [facility] Start: 03-02-2023 End: 03-02-2023 ambulatory Olivier Shivam Other [employer] Other Start: 03-02-2023 Office outpatient visit 15 minutes Olivier Langley [facility] Start: 06-09-2022 End: 06-10-[address] OLIVIER LANGLEY Facility:[facility] Start: 04-27-2022 End: 04-28-[address] OLIVIER LANGLEY Facility:[facility] Start: 04-24-2022 End: 04-24-[address] AMARJIT CUBA Facility:[facility] Start: 01-13-2022 Adult health examination Olivier Langley Other [employer] Other Start: 12-24-2021 End: 12-25-[address] OLIVIER LANGLEY Facility:[facility] Start: 10-17-2021 Encounter for genera l adult medical examination without abnormal findings DR OLIVIER LANGLEY [facility] Start: 10-16-2021 End: 10-17-[address] [...] on above: Performed By: #### DATPSA #### [facility] [address] [place] [address] Dr. Van Jernigan Start: 10-24-2013 Screening for malignant neoplasm of prostate Olivier Langley Other Screening for malign ant neoplasm of colon Olivier Langley Other Plan of Treatment Date Care Activity Detail Author Start: 10-05-2023 [facility] Immunizations Immunization Date Immunization Notes Care Provider Fa dolly 06-04-2023 influenza, injectabl e, quadrivalent, preservative free Olivier Langley Other [facility] 05-26-2021 influenza virus vaccine, split virus (incl. purified surface antigen) Olivier Langley Other [employer] Other 05-26-2021 influenza virus vaccine, unspecified formulation DO Olivier Langley Work Phone: [facility] 10-23-2020 COVID-19 Ad26.COV2.S (Lizeth) DO Olivier Langley Work Phone: [facility] 05-12-2020 influenza virus vaccine, split virus (incl. purified surface antigen) Olivier Langley Other [employer] Other 05-12-2020 influenza virus vaccine, unspecified formulation DO Olivier Langley Work Phone: [facility] 08-03-2019 COVID-19 mRNA, Comirnaty (Pfizer) DO Olivier Langley Work Phone: [facility] Payers Date Payer Category Payer Medicaid [id number] 2. [id number] 1960 Unknown [id number] 2.16.84 [id number] 1960 Unknown [id number] 2.16.84 [id number] 1960 Unknown [id number] 2.16.84 [id number] 1960 Unknown [id number] 2.16.84 [id number] 1960 Unknown [id number] 2.16.84 [id number] 1960 Unknown [id number] 2.16.840 .[id number] 1960 Unknown [id number] 1957 Self-pay 1957 Unknown [id number] Unknown [id number] 2.16.84 [id number] Unknown HCAP/HFA/FAP Active [id number] Unknown [id number] 2.16.8 [id number] Social History Date Type Detail Facility Unknown if ever smoked [employer] Other Sex Assigned At Sex Assigned At Bir th [employer] Other Start: 10-05-2023 Tobacco smoking status NHIS Never smoked tobacco (finding) [facility] Start: 1960 Sex Assigned At Male [facility] Goals Date Patient Goal Desired Activity /State Clinical Notes 03-02-2023 to 10-05-2023 Note Date & Type Note Facility 10-05-2023 Procedure note [facility] 08-13-2023 Evaluation note Encounter Date Diagnosis Assessment Notes Jul, Cough with hemoptysis (ICD-10 - R04.2) [facility] [employer] Other 12-18-2023 Evaluation note* Encounter Date Diagnosis Assessment Notes Treatment Notes Treatment Clinical Notes Jul, Cough with hemoptysis (ICD-10 - R04.2) [facility] [employer] Other [id number] Reason for referral (narrative)* Reason 08/02/23 Referral for blood streaked sputum. Diagnosis 1 Cough with hemoptysi s (R04.2) [facility] Referring Provider First Name Olivier Referring Provider Last Name Shivam Referring Provider Specialty Internal Me dicine Referred Organization [facility] Referred Provider Doretha Thornton Referred Address ,[place], [place],[address] Referred Provider Specialty Ear, Nose an d [...] faxed Carissa Rivero 07/26/2023 01:02:06 PM >per CAROL [facility], referral was received on 07/21. no appt scheduled yet. will follow back up Carissa Rivero 08/02/2023 01:19:56 PM >note in chart for review. closing out referral Reason *Waiting for appt Referral for EGD Diagnosis 1 Gastroesophageal ref lux disease with esophagitis without hemorrhage (K21.00) Diagnosis 2 Cough with hemoptysi s (R04.2) Referral Organization [facility] Shivam hamm Referring Provider First Name Olivier Referring Provider Last Name Shivam Referring Provider Specialty Internal Me yris Referred Organization [facility] Gastroenterolo gy Referred Provider Stefano Rosado Referred Address [address] [facility] [address] ,[place], [place],[address] Referred Provider Specialty Gastroentero logy Referral Priority [...] 08/26/2023 06:46:10 PM >received today, referral faxed H[employer] Other 12-04-2023 Evaluation note* Encounter Date Diagnosis [...] continue exercise to achieve/maintain a normal BMI. [employer] Other 11-17-2023 Evaluation note* Encounter Date Diagnosis Assessment Notes Treatment Notes Treatment Clinical Notes Jun, Hypercholesteremia (ICD-10 - E78.00) [employer] Other 10-20-2023 Evaluation note* Encounter Date Diagnosis [...] and inserts to prevent callus formation.Fall precautions. 20 Oct, 2023 Gastroesophageal reflux disease with esophagitis without hemorrhage [...] specific antigen) (ICD-10 - Z12.5) Yearly screening [place] [employer] Other 07-18-2023 Evaluation note* Encounter Date Diagnosis [...] ER for increased pain, fever or vomiting. [employer] Other Evaluation noteNo InformationNort [employer] Other Evaluation noteNo assessment information available [facility] Work Phone: History and physical note Author Stefano Rosado [facility] February 20th, 2024 1:38pm Note Date/Time October 05, 2023 1:38pm [facility] [address] [place] [address] Gastroenterology H&P Signed Patient: Miguel Mckinney MR#: [id number] : 1960 Acct:[id number] Age/Sex: 62 / M Adm Date: 4 Loc: Room: Type: [facility] Attending Dr: Stefano Rosado MD Copies to: [...] MD Documented By: Stefano Rosado MD 10/05/23 1337 Signed By: <Electronically signed by Stefano Rosado MD> 10/05/23 1338 [facility] Work Phone: History general Narrative - Reported* [...] History Tonsillectomy Hospitalization History see surgical history [employer] Other History general Narrative - Reported* Type [...] History Tonsillectomy Hospitalization History see surgical history [employer] Other Summary Purpose Family History No Family [...] Records FoundNo Status Records FoundNo Status Records FoundNo Status Records Found INFORMATION SOURCE (unrecogn ized section and content) DATE CREATED AUTHOR 06/14/2022 [facility] DATE CREATED AUTHOR AUTHOR'S ORGANIZ ATION 08/02/2023 [facility] EPIC DATE CREATED AUTHOR AUTHOR'S ORGANIZ ATION 10/12/2023 [facility] DATE CREATED AUTHOR AUTHOR'S ORGANIZ ATION 09/21/[address] [facility] REASON FOR VISIT (unrecogniz ed section [...] Provider Active Start: October 05, 2023 Stefano Rosdao MD Attending Provider, Other Provider Active Start: [...] BE BASED ON THE PRIMARY CLINICAL RECORDS. [employer] [facility]. provides no warranty or guarantee of the accuracy or completeness of information in this document.
== END 2024-09-19 15:35 | disposition home or self-care (01) ==
LOC: LAB 15:34
PROVIDERS: PCP Internal Medicine; Visit Provider Internal Medicine
DX: N20.1 Calculus of ureter (principal)
CPT/HCPCS: 82365

== ENCOUNTER 2024-11-23 11:56 | Outpatient (OUT) | payer MEDICAID, SELFPAY ==
[2024-11-23 12:27] LABS: Estimated Average Glucose 171 mg/dL; Glycohemoglobin A1C 7.6 % (4.5-6.2)
== END 2024-11-23 11:57 | disposition home or self-care (01) ==
LOC: LAB 11:59
PROVIDERS: PCP Internal Medicine; Visit Provider Internal Medicine
DX: E11.65 Type 2 diabetes mellitus with hyperglycemia (principal)
CPT/HCPCS: 36415; 83036